=== PATIENT | male | born 1975 | race Hispanic/Latino ===

== ENCOUNTER 2025-05-03 17:13 | Inpatient (IN) | payer BC ==
[~2025-05-03] VITALS: Ht 175.3 cm; Wt 173.5 kg
[2025-05-03 17:48] LABS: IMMATURE GRANULOCYTE ABSOLUTE 0.05 K/uL (0-1); NUCLEATED RED BLOOD CELLS 0.0 % (0.0-0.19); PLATELET COUNT (AUTO) 336 K/uL (130-400); RED BLOOD CELL COUNT(AUTO) 5.09 MIL/uL (4.50-6.20); RED CELL DISTRIBUTION WIDTH 14.1 % (11.0-15.5); WHITE BLOOD COUNT (AUTO) 14.9 K/uL (4.8-10.8)
[2025-05-03 17:56] LABS: CREATININE 0.9 mg/dL (0.5-1.3); GLOMERULAR FILTR. RATE CALC 106.0 mL/min (>90); GLUCOSE,RANDOM 173.0 mg/dL (70-105); SODIUM SERUM 145.0 mmol/L (136-145); UREA NITROGEN, BLOOD 12.0 mg/dL (7-18)
[2025-05-03 18:10] LABS: APPEARANCE,URINE CLEAR (CLEAR); GLUCOSE, URINE (UA) 30 mg/dL (NEGATIVE); LEUKOCYTE ESTERASE ,URINE NEGATIVE Leu/uL (NEGATIVE); NITRATE,URINE NEGATIVE (NEGATIVE); OCCULT BLOOD,URINE NEGATIVE (NEGATIVE)
[2025-05-03 18:11] LABS: ADD UA MICROSCOPIC YES
[2025-05-03 18:13] LABS: SQUAMOUS EPITHELIAL CELL,UR FEW /HPF (0-2)
--- NOTE | 2025-05-03 18:34 | ERN ---
ED Note History of Present Illness Stated Complaint: ABSCESS Chief Complaint: Abscess Time Seen by MD: 17:16 Time Seen by Midlevel: 17:16 Dictation: The patient is a 49-year-old male with a history of prediabetes on metformin, hypertension who presents to the emergency department with complaints of scrotal pain. Patient reports he had a small boil on his scrotum five days ago and then it started draining. Reports fevers yesterday. Allergies: Coded Allergies: No Known Drug Allergies (Unverified Allergy, Unknown, 05/03/25) Past Medical History Past Medical History: Diabetes-Type II, Hypertension Surgical History: None RN Note Reviewed/Agreed w/PFSH: Yes Review of System Dictation Constitutional: Negative for fever,chills, and weight loss Eyes: Negative for injury, pain,redness, and discharge ENT: Negative for injury,pain or swelling Cardiovascular: Negative for chest pain, palpitations, and edema Respiratory: Negative for shortness of breath, cough, and wheezing, Abdomen/GI: Negative for abdominal pain, nausea, vomiting, diarrhea, and constipation Back: Negative for injury and pain : Positive for scrotal pain MS/Extremity: Negative for injury and deformity Skin: Negative for rash, and discoloration Neuro: Negative for headache, weakness, numbness, tingling, and seizure Psych: Negative for suicide ideation, homicidal ideation, and hallucinations Initial Vital Sign VS Vital Signs Date Time Temp Pulse Resp B/P (MAP) Pulse Ox O2 Delivery O2 Flow Rate FiO2 05/03/25 17:17 99.7 105 20 150/82 95 Room Air 0 05/03/25 17:19 21 Physical Exam Dictation Vital Signs reviewed General Appearance: Alert, oriented x 3, no acute distress, well developed, nourished. Head and Face: non-traumatic. Eyes: PERRL, pink conjunctivas, eyelid no trauma, anterior chamber with arcus senilis. Ears: Pinnas intact and no signs of trauma or erythema ear canals clear and no discharge TM no erythema Nose: No discharge, no bleeding. Oropharynx: Mouth normal, tongue pink. pharynx clear,no erythema, tonsils no exudates, no abscesses noted, mucous membrane moist Neck: Supple, non-tender, no thyromegaly, no masses, no JVD, no bruits Breast:Deferred Chest:No tenderness, no crepitus, no paradoxical movement, no retractions Lungs:Clear, well-ventilated, symmetric, no rales, no wheezing, no rhonchi, no stridor, good breath sounds bilaterally Heart: Regular rate, regular rhythm, no murmur, no gallops Vascular: no peripheral edema, Abdomen: Soft, positive bowel sounds, nondistended, no guarding, nontender, no rebound, no masses no hepatomegaly, no splenomegaly, no Knight's sign, no hernias. Rectal: Deferred Genital: Erythema and induration to mid scrotum, open wound noted, clear drainage Neurological: Normal speech, motor function intact, sensory function intact Musculoskeletal: Neck nontender, full range of motion, back nontender, full range of motion, Extremities: nontender, full range of motion Skin: Color pink, dry, no turgor, no rash, no lacerations, no abrasions, no contusions. Lymphatic: Deferred Results (Laboratory/Radiology) Laboratory/Radiology Laboratory Tests Test 05/03/25 17:43 05/03/25 17:58 05/03/25 20:00 White Blood Count 14.9 K/uL (4.8-10.8) H Red Blood Count 5.09 MIL/uL (4.50-6.20) Hemoglobin 15.5 g/dL (14.0-18.0) Hematocrit 47.1 % (42-54) Mean Corpuscular Volume 92.5 fL (79-99) Mean Corpuscular Hemoglobin 30.5 pg (27.0-33.0) Mean Corpuscular Hemoglobin Concent 32.9 g/dL (32.0-36.0) Red Cell Distribution Width 14.1 % (11.0-15.5) Platelet Count 336 K/uL (130-400) Mean Platelet Volume 9.8 fL (7.5-10.5) Immature Granulocyte % (Auto) 0.3 % (0-1) Neutrophils (%) (Auto) 63.8 % (40.0-77.0) Lymphocytes (%) (Auto) 26.7 % (21.0-51.0) Monocytes (%) (Auto) 7.1 % (3.0-13.0) Eosinophils (%) (Auto) 1.7 % (0.0-8.0) Basophils (%) (Auto) 0.4 % (0.0-5.0) Neutrophils # (Auto) 9.5 K/uL (1.8-7.7) H Lymphocytes # (Auto) 4.0 K/uL (1.0-4.8) Monocytes # (Auto) 1.1 K/uL (0.1-1.0) H Eosinophils # (Auto) 0.25 K/uL (0.00-0.70) Basophils # (Auto) 0.06 K/uL (0.00-0.20) Absolute Immature Granulocyte (auto 0.05 K/uL (0-1) Nucleated Red Blood Cells 0.0 % (0.0-0.19) Sodium Level 145 mmol/L (136-145) Potassium Level 4.0 mmol/L (3.5-5.1) Chloride Level 108 mmol/L (101-111) Carbon Dioxide Level 28 mmol/L (21-32) Blood Urea Nitrogen 12 mg/dL (7-18) Creatinine 0.9 mg/dL (0.5-1.3) Glomerular Filtration Rate Calc 106 mL/min (>90) Random Glucose 173 mg/dL (70-105) H Total Calcium 9.0 mg/dL (8.5-10.1) Urine Color LIGHT-YELLOW (YELLOW) Urine Appearance CLEAR (CLEAR) Urine pH 5.0 (5.0-8.0) Urine Specific Jbphh 1.020 (1.001-1.031) Urine Protein NEGATIVE mg/dL (NEGATIVE) Urine Glucose (UA) 30 mg/dL (NEGATIVE) H Urine Ketones NEGATIVE mg/dL (NEGATIVE) Urine Occult Blood NEGATIVE (NEGATIVE) Urine Nitrate NEGATIVE (NEGATIVE) Urine Bilirubin NEGATIVE mg/dL (NEGATIVE) Urine Urobilinogen 0.2 mg/dL (0.2-1.0) Urine Leukocyte Esterase NEGATIVE Celso/uL Urine RBC 0-1 /HPF (0-1) Urine WBC 0-1 /HPF (0-1) Urine Squamous Epithelial Cells FEW /HPF (0-2) Urine Bacteria None /HPF (None Seen) Lactic Acid Level 1.3 mmol/L (0.8-2.5) REASON: pain ORDERING PHYSICIAN: MIRYAM KEENAN PROCEDURE: SCROTUM - US SCROTUM & CONTENTS EXAM: US Scrotum. CLINICAL HISTORY: Patient presents with scrotal pain. TECHNIQUE: Real-time ultrasound of the scrotum with color Doppler and image documentation. COMPARISON: None provided. FINDINGS: RIGHT TESTICLE: The right testicle measures 4.1 x 2.6 x 3.2 cm. It demonstrates hypoechoic echotexture with normal color Doppler flow. LEFT TESTICLE: The left testicle measures 4.2 x 2.6 x 3.0 cm and demonstrates hypoechoic echotexture. Minimal hydrocele is present. Normal color Doppler flow is demonstrated. EPIDIDYMIDES: The right epididymal head measures 8 mm, body 4 mm, and tail 2 mm with normal Doppler flow. The left epididymal head measures 10 mm and body 6 mm. The left epididymal tail is not visualized. Normal color Doppler flow is present in the visualized portions. SCROTUM: The right and left scrotal kline each measure 5 cm. Prominent vessels measuring 3 mm are identified in the right groin. No varicocele or extratesticular mass is seen. IMPRESSION: Bilateral testicular hypoechogenicity of unclear significance with preserved color Doppler flow. Minimal hydrocele in the left hemiscrotum. Prominent vessels in the right groin measuring 3 mm. No evidence of torsion or acute testicular abnormality. /[facility] Labs Reviewed?: Yes ED Course ED Course Orders Procedure Category Date Status Time Cbc With Differential LAB 05/03/25 Complete 17:26 Urinalysis Profile LAB 05/03/25 Complete 17:26 Basic Metabolic Panel LAB 05/03/25 Complete 17:26 Us Scrotum & Contents US 05/03/25 Resulted 17:26 Zosyn 3.375gm+Ns 50ml PHA 05/03/25 Complete (Zosyn 3.375gm+Ns 18:29 Vancomycin 1g/250ml PHA 05/03/25 Complete Kit (Vancomycin 1g/2 18:30 0.9%Nacl 1000ml (Ns PHA 05/03/25 In Process 1000ml) 18:30 Lactic Acid LAB 05/03/25 Complete 18:29 Blood Cult PAUL 05/03/25 In Process 18:29 Diphenhydramine Hcl PHA 05/03/25 Complete (Benadryl Inj) 19:30 Ondansetron 4mg Inj PHA 05/03/25 Complete (Zofran 4mg Inj) 19:30 Ketorolac PHA 05/03/25 Complete Tromethamine 30mg/Ml 19:30 Ketorolac 60mg/2ml PHA 05/03/25 Complete (Toradol 60mg/2ml) 19:33 Admit Orders ADM 05/03/25 Transmitted 20:53 Urology Consult CONPHYSVC 05/03/25 Transmitted 20:53 Current Medications Medications (Trade) Dose Ordered Sig/Ramiro Route PRN Reason Start Time Stop Time Status Last Admin Dose Admin Diphenhydramine HCl (BENAdryl INJ) 25 mg ONCE ONCE IV 05/03/25 19:30 05/03/25 19:31 DC 05/03/25 19:28 Ketorolac Tromethamine (toRADol 60MG/ 2ML) 60 mg STK-MED ONCE IM 05/03/25 19:33 05/03/25 19:33 DC Ketorolac Tromethamine (toRADol) 30 mg ONCE ONCE IVP 05/03/25 19:30 05/03/25 19:31 DC 05/03/25 19:29 Ondansetron HCl (zoFRAN 4MG INJ) 4 mg ONCE ONCE IVP 05/03/25 19:30 05/03/25 19:31 DC 05/03/25 19:28 Piperacillin Sod/ Tazobactam Sod 50 ml @ 200 mls/hr STAT STAT IVPB 05/03/25 18:29 05/03/25 18:43 DC 05/03/25 19:03 Sodium Chloride 2,121 ml @ 707 mls/hr ONCE ONCE IV 05/03/25 18:30 05/03/25 21:29 05/03/25 19:03 Vancomycin HCl 250 ml @ 125 mls/hr ONCE ONCE IV 05/03/25 18:30 05/03/25 20:29 DC 05/03/25 19:46 Vital Signs Date Time Temp Pulse Resp B/P (MAP) Pulse Ox O2 Delivery O2 Flow Rate FiO2 05/03/25 17:19 99.7 105 20 150/82 95 Room Air* 0 21 05/03/25 17:17 99.7 105 20 150/82 95 Room Air 0 Medical Decision Making MDM MDM: The patient is a 49-year-old male with a history of prediabetes on metformin, hypertension who presents to the emergency department with complaints of scrotal pain. Patient reports he had a small boil on his scrotum five days ago and then it started draining. Reports fevers yesterday. CBC showed leukocytosis, no anemia, chemistry showed mild hyperglycemia, no other electrolyte imbalance, normal lactic acid, urinalysis unremarkable, patient will be admitted for further evaluation and management and urology con dileept. Differential diagnosis: Scrotal abscess, cellulitis, sepsis, UTI Comorbidities: Prediabetes, hypertension Tests considered and not ordered secondary to shared decision making include: none Previous outside records reviewed: none Risk of complication and/or morbidity or mortality of patient management: The patient meets criteria for admission. Need for emergency major/minor surgery: No There are no social concerns with this patient. I independently interpreted the tests I ordered (labs, urinalysis, etc.). I discussed the case with the hospitalist for admission. Wilbur BROWN who accepts admission I discussed the case with the following specialists: none. Historian: elizabeth. I independently interpreted imaging studies and EKGs that I ordered (US, CT, XR, EKG, etc.). External chart review: none. Medical management and examination interpretation discussions were had by me wit h other qualified healthcare professionals as indicated for the patient's care. DX & DISP Disposition: Inpatient Decision to Admit Date: May 03, 2025 Decision to Admit Time: 21:00 Departure Impression: Primary Impression: Cellulitis, scrotum Additional Impressions: Leukocytosis, Sepsis Condition: Stable Referrals: SELF,REFERRAL (PCP) I have examined patient, & reviewed all documents, & agreed W/ the Diagnosis, and Plan MIRYAM KEENANP May 03, 2025 18:34
[2025-05-03] MEDS: ZOSYN 3.375GM+NS 50ML 50 ML IVPB STA (19:03)
[2025-05-03] MEDS: 0.9%NACL 1000ML 2,121 ML IV ONE (19:03)
--- NOTE | 2025-05-03 19:29 | NUR ---
AFTER STARTING ZOSYN ADMINISTRATION PT BECAME AGGITATED AND REPORTED SOB AND CLINICAL GENETICIST NOTIFIED POSSIBLE ALLERGIC REACTION MEDICATION STOPPED AND ADDITIONAL MEDS GIVEN TO PREVENT NAUSEA AND POTENTIAL ALLERGIC REACTION PATIENT SYMPTOMS RESOLVED AND MEDICATION CONTINUED
--- NOTE | 2025-05-03 19:41 | NUR ---
PULLED 60 MG KETOROLAC TO FILL 30 MG DOSE THAT WAS UNAVAILABLE AND DISGUARDED REMAINING PORTION
[2025-05-03] MEDS: VANCOMYCIN 1G/250ML KIT 250 ML IV ONE (19:46)
--- NOTE | 2025-05-03 20:15 | HMCIMG ---
EXAM: US Scrotum. CLINICAL HISTORY: Patient presents with scrotal pain. TECHNIQUE: Real-time ultrasound of the scrotum with color Doppler and image documentation. COMPARISON: None provided. FINDINGS: RIGHT TESTICLE: The right testicle measures 4.1 x 2.6 x 3.2 cm. It demonstrates hypoechoic echotexture with normal color Doppler flow. LEFT TESTICLE: The left testicle measures 4.2 x 2.6 x 3.0 cm and demonstrates hypoechoic echotexture. Minimal hydrocele is present. Normal color Doppler flow is demonstrated. EPIDIDYMIDES: The right epididymal head measures 8 mm, body 4 mm, and tail 2 mm with normal Doppler flow. The left epididymal head measures 10 mm and body 6 mm. The left epididymal tail is not visualized. Normal color Doppler flow is present in the visualized portions. SCROTUM: The right and left scrotal kline each measure 5 cm. Prominent vessels measuring 3 mm are identified in the right groin. No varicocele or extratesticular mass is seen. IMPRESSION: Bilateral testicular hypoechogenicity of unclear significance with preserved color Doppler flow. Minimal hydrocele in the left hemiscrotum. Prominent vessels in the right groin measuring 3 mm. No evidence of torsion or acute testicular abnormality. /[place]
--- NOTE | 2025-05-03 20:55 | HP ---
History of Present Illness Reason for Visit: scrotal pain History of Present Illness Mr. Kaur is a 49-year-old male that was seen and examined today on 05/03/2025. Patient is a good historian of personal health Patient reports that he came to the emergency department with a chief complaint of scrotal pain. Onset was April 28. Location is scrotum. Duration is constant. Character is described as soreness. There was no alleviating factors. 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 Patient reports associated scrotal wound that is draining and fever that began yesterday. Today in the emergency department WBCs 14.9, glucose 173, urinalysis unremarkable, testicular ultrasound shows left hemiscrotum hydrocele. Emergency room physician recommended patient be admitted with a diagnosis of sepsis. Additionally patient had a heart rate of 105, WBCs 14.9 and suspected source of infection being scrotal wound meeting clinical sepsis criteria. Past Medical History ADDITIONAL PAST MEDICAL HISTORY: [Diabetes mellitius type2, hypertension] SOCIAL HISTORY: [Patient smokes one pack of cigarettes daily and has been smoking like this since the age of 17. Patient drinks alcohol once a month usually 2-3 whiskey cocktails. Patient denies drug use. Patient is typically independent of all his ADLs. Patient denies difficulty pain is bills. 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 Patient lives with his mother, Javier Lucia SURGICAL HISTORY: [Left shoulder injection, bilateral knee injections] Review of Systems General: No Fever, No Chills, No Night Sweats, No Fatigue, No Malaise, No Appetite, No Other HEENT: No Head Aches, No Visual Changes, No Eye Pain, No Ear Pain, No Dys phasia, No Sinus Congestion, No Post Nasal Drip, No Sore Throat, No Other Pulmonary: No Dyspnea, No Cough, No Pleuritic Chest Pain, No Other Cardiovascular: No: Chest Pain, Palpitations, Orthopnea, Paroxysmal Noc. Dyspnea, Edema, Lt Headedness, Other Gastrointestinal: No: Nausea, Vomiting, Abdominal Pain, Diarrhea, Constipation, Melena, Hematochezia, Other Genitourinary: No Dysuria, No Frequency, No Incontinence, No Hematuria, No Retention; Other (Scrotal pain) Musculoskeletal: No: other, neck pain, shoulder pain, arm pain, back pain, hand pain, leg pain, foot pain Skin: No Urticaria, No Rash; Other (Scrotal wound) Neurological: No: Weakness, Numbness, Incoordination, Change in speech, Confu horacio, Seizures, Other Allergies: Coded Allergies: No Known Drug Allergies (Unverified Allergy, Unknown, 05/03/25) Exam Vital Signs Vital Signs Date Time Temp Pulse Resp B/P (MAP) Pulse Ox O2 Delivery O2 Flow Rate FiO2 05/03/25 17:19 99.7 105 20 150/82 95 Room Air* 0 21 General Appearance: Alert, Oriented X3, Cooperative, mild distress HEENT: Atraumatic, PERRLA, EOMI, Mucous membr. moist/pink Respiratory: Clear to auscultation, Normal air movement, NL respiratory effort Cardiovascular: Regular rate, Regular rhythm, Normal S1, Normal S2 Abdominal: Normal bowel sounds, Soft, No tenderness Extremities: No edema Skin: Other (Scrotal) Neuro: Normal gait, Normal speech, Strength at 5/5 X4 ext, Sensation intact, Cranial nerves 3-12 NL Psych/Mental Status: Mental status NL (nd), Mood NL, Thoughts/Content NL Assessment/Plan ASSESSMENT: [ Sepsis, POA Scrotal wound, POA Left hemiscrotum hydrocele, POA Leukocytosis, POA Tobacco dependence, POA Diabetes mellitius type2 Hypertension] PLAN: [ Admit patient to medical floor as inpatient status. Place patient on telemetry monitoring. Sepsis, leukocytosis: Patient received 0.9% NS 30 mL/kg Empiric antibiotic therapy with Zosyn Check blood culture, follow up with the results Check procalcitonin, follow up with the results Reviewed patient's lactic acid which was unremarkable Reviewed patient's urinalysis which was unremarkable Scrotal wound, left hemiscrotum hydrocele: Patient will be followed by urology service, Dr. Harrell Obtain wound cultures, follow up with the results Empiric antibiotic therapy as mentioned above Tobacco dependence: Consult patient on smoking cessation Start nicotine patch 21 mg transdermally once daily. Diabetes mellitus type 2: Check hemoglobin A1c in a.m. Glucometer checks a.c. and HS 1800 ADA diet Humulin R sliding scale Hypertension: Consider resuming home medications once they have been reconciled. At time of admission home medications did not been reconciled. For now: Hydralazine 10 mg IV every 4 hours for systolic blood pressure greater than 160 mmHg GI prophylaxis, famotidine DVT prophylaxis, Lovenox ADVANCED CARE PLANNING 1. Which of the following were discussed? Hospice Care - Yes Therapeutic options - yes Advance Directives - Yes - patient states he does not have any advance directives in place at this time, however his mother Javier Dugan can make decisions for him if he becomes unable. Other discussions - patient wishes to remain a full code at this time 2. Discussed with who? Patient 3. Voluntary nature of this service was explained to the patient? Yes 4. Amount of time spent - ___16 minutes____ 5. Reviewed by Physician? (if this service was performed by NPP) Yes This document was generated in part using voice recognition software, occasional wrong word or sound alike substitutions may have occurred due to the inherent limitations of voice recognition software. Read the chart carefully and recogni ze using context, where the substitutions have occurred. Although every effort was made to edit the content, coatings inspector and typing errors may occur ATTESTATION BY PHYSICIAN I have seen and examined the patient. I reviewed the documentation, medical de cision making, and treatment plan as noted by the mid-level provider above. I agree with the findings and plan of care.] [facility] May 03, 2025 20:55
[2025-05-03] MEDS ORDERED: 0.9%NACL 50ML IV SCH (21:45)
[2025-05-04] MEDS: NICOTINE 21 MG/ 24 HR PATCH TD ONE (02:12)
[2025-05-04] MEDS: ZOSYN 3.375GM +NS 50ML IVPB SCH (03:07)
[2025-05-04 06:28] LABS: IMMATURE GRANULOCYTE ABSOLUTE 0.06 K/uL (0-1); NUCLEATED RED BLOOD CELLS 0.0 % (0.0-0.19); PLATELET COUNT (AUTO) 307 K/uL (130-400); RED BLOOD CELL COUNT(AUTO) 4.63 MIL/uL (4.50-6.20); RED CELL DISTRIBUTION WIDTH 14.5 % (11.0-15.5); WHITE BLOOD COUNT (AUTO) 12.9 K/uL (4.8-10.8)
[2025-05-04 06:39] LABS: CREATININE 0.9 mg/dL (0.5-1.3); GLOMERULAR FILTR. RATE CALC 106.0 mL/min (>90); GLUCOSE,RANDOM 204.0 mg/dL (70-105); PHOSPHORUS 4.3 mg/dL (2.5-4.9); SODIUM SERUM 140.0 mmol/L (136-145); UREA NITROGEN, BLOOD 13.0 mg/dL (7-18)
--- NOTE | 2025-05-04 07:00 | NUR ---
Refused blood glucose check. Stated he needed to rest.
--- NOTE | 2025-05-04 07:05 | NUR ---
Assumed patients care.
--- NOTE | 2025-05-04 08:00 | NUR ---
Patient was placed in a hospital bed. Bed low and locked, bed rails up x3.
--- NOTE | 2025-05-04 09:00 | NUR ---
Educated patient on plan of care, sceduled medications, current diet and pain managment. Patient verbalized understanding.
[2025-05-04] MEDS: FAMOTIDINE 20MG TAB PO SCH (09:27)
[2025-05-04] MEDS: ENOXAPARIN SODIUM 40 MG/0.4 ML SYRINGE SQ SCH (09:27)
--- NOTE | 2025-05-04 12:10 | PN ---
[facility] PROGRESS NOTE Date of Service: May 04, 2025 Time of Service: 12:00 SUBJECTIVE: [ ] Mr. Kaur is a 49-year-old male that was seen and examined today on 05/03/2025. Patient is a good historian of personal health Patient reports that he came to the emergency department with a chief complaint of scrotal pain. Onset was April 28. Location is scrotum. Duration is constant. Character is described as soreness. There was no alleviating factors. 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 Patient reports associated scrotal wound that is draining and fever that began yesterday. Today in the emergency department WBCs 14.9, glucose 173, urinalysis unremarkable, testicular ultrasound shows left hemiscrotum hydrocele. Emergency room physician recommended patient be admitted with a diagnosis of sepsis. Additionally patient had a heart rate of 105, WBCs 14.9 and suspected source of infection being scrotal wound meeting clinical sepsis criteria. 05/04/25 patient is sitting on the edge of the bed he remains in ER setting holding. Patient denies scrotal pain. Tolerating IV antibiotics. Discussed the plan of care answer all questions appropriately. REVIEW OF SYSTEMS a 12 point ROS obtained all relevant positive document otherwise ROS negative PHYSICAL EXAM GENERAL APPEARANCE: The patient is awake, alert, and oriented, in no acute cardiopulmonary distress. NEUROLOGICAL: Cranial nerves II-XII grossly intact. Motor is 5/5 in bilateral upper and lower extremities proximal to distal. No sensory deficits. HEENT: Face is symmetric. Pupils are equal and reactive. Extraocular movements are intact. NECK: Supple. No JVD. No thyromegaly. No submental, submandibular, pre-/postauricular, occipital or supraclavicular lymphadenopathy. CHEST: Normal chest expansion. No Telemetry. LUNGS: Absence of any rales, rhonchi or any wheezing. CARDIOVASCULAR: Regular. S1 and S2 normal. No appreciable rubs, murmurs or gallops. ABDOMEN: Soft, nontender, and nondistended. There is no rebound, voluntary guarding, or rigidity. : Deferred. No Fung. EXTREMITIES: Non-edematous and not cyanotic. No clubbing. Good capillary refill. SKIN: No skin breakdown. Vital Signs (last 8hr) Date Time Temp Pulse Resp B/P (MAP) Pulse Ox O2 Delivery O2 Flow Rate FiO2 05/04/25 07:05 98.2 84 16 119/64 93 Room Air* 0 21 05/04/25 05:50 98.6 85 17 113/85 96 Room Air* 0 21 LABS: Laboratory: Test 05/04/25 11:17 05/04/25 06:15 05/03/25 20:00 05/03/25 17:58 Range/Units Whole Blood Glucose 242 H 70-110 MG/DL White Blood Count 12.9 H 4.8-10.8 K/uL Red Blood Count 4.63 4.50-6.20 MIL/uL Hemoglobin 14.3 14.0-18.0 g/dL Hematocrit 44.1 42-54 % Mean Corpuscular Volume 95.2 79-99 fL Mean Corpuscular Hemoglobin 30.9 27.0-33.0 pg Mean Corpuscular Hemoglobin Concent 32.4 32.0-36.0 g/dL Red Cell Distribution Width 14.5 11.0-15.5 % Platelet Count 307 130-400 K/uL Mean Platelet Volume 10.0 7.5-10.5 fL Immature Granulocyte % (Auto) 0.5 0-1 % Neutrophils (%) (Auto) 60.4 40.0-77.0 % Lymphocytes (%) (Auto) 26.8 21.0-51.0 % Monocytes (%) (Auto) 8.8 3.0-13.0 % Eosinophils (%) (Auto) 3.0 0.0-8.0 % Basophils (%) (Auto) 0.5 0.0-5.0 % Neutrophils # (Auto) 7.8 H 1.8-7.7 K/uL Lymphocytes # (Auto) 3.5 1.0-4.8 K/uL Monocytes # (Auto) 1.1 H 0.1-1.0 K/uL Eosinophils # (Auto) 0.38 0.00-0.70 K/uL Basophils # (Auto) 0.06 0.00-0.20 K/uL Absolute Immature Granulocyte (auto 0.06 0-1 K/uL Nucleated Red Blood Cells 0.0 0.0-0.19 % Sodium Level 140 136-145 mmol/L Potassium Level 3.9 3.5-5.1 mmol/L Chloride Level 106 101-111 mmol/L Carbon Dioxide Level 32 21-32 mmol/L Blood Urea Nitrogen 13 7-18 mg/dL Creatinine 0.9 0.5-1.3 mg/dL Glomerular Filtration Rate Calc 106 >90 mL/min Random Glucose 204 H 70-105 mg/dL Hemoglobin A1c 8.3 H 4.0-6.0 % Estimated Average Glucose (eAG) 192 H 70-126 mg/dL Total Calcium 8.4 L 8.5-10.1 mg/dL Phosphorus Level 4.3 2.5-4.9 mg/dL Magnesium Level 2.00 1.80-2.40 mg/dL Lactic Acid Level 1.3 0.8-2.5 mmol/L Procalcitonin < 0.05 L 0.05-0.5 ng/mL Urine Color LIGHT-YELLOW YELLOW Urine Appearance CLEAR CLEAR Urine pH 5.0 5.0-8.0 Urine Specific [employer] 1.020 1.001-1.031 Urine Protein NEGATIVE NEGATIVE mg/dL Urine Glucose (UA) 30 H NEGATIVE mg/dL Urine Ketones NEGATIVE NEGATIVE mg/dL Urine Occult Blood NEGATIVE NEGATIVE Urine Nitrate NEGATIVE NEGATIVE Urine Bilirubin NEGATIVE NEGATIVE mg/dL Urine Urobilinogen 0.2 0.2-1.0 mg/dL Urine Leukocyte Esterase NEGATIVE NEGATIVE Celso/uL Urine RBC 0-1 0-1 /HPF Urine WBC 0-1 0-1 /HPF Urine Squamous Epithelial Cells FEW 0-2 /HPF Urine Bacteria None None Seen /HPF Current Medications Medications (Trade) Dose Ordered Sig/Ramiro Route PRN Reason Start Time Stop Time Status Last Admin Dose Admin Acetaminophen (TYLenol 325MG TAB) 650 mg Q6H PRN PO TEMPERATURE GREATER THAN 101.5 05/03/25 22:00 06/02/25 21:59 Enoxaparin Sodium (Lovenox) 40 mg DAILY SQ 05/04/25 09:00 06/03/25 08:59 05/04/25 09:27 40 MG Famotidine (Pepcid 20mg Tab) 20 mg DAILY PO 05/04/25 09:00 06/03/25 08:59 05/04/25 09:27 20 MG Hydralazine HCl (APRESOLine 20MG INJ) 10 mg Q6H PRN IV For:SBP above 160;DBP above 90 05/03/25 22:00 06/02/25 21:59 Insulin Human Regular (humuLIN R 100 UNIT/ML 3ML) INSULIN SLIDING SCAL... ACHS SQ 05/04/25 07:30 06/03/25 07:29 Morphine Sulfate (morPHINE 2MG SYG) 2 mg Q4H PRN IVP SEVERE PAIN (7-10) 05/03/25 22:00 05/10/25 21:59 Nicotine (Nicoderm) 21 mg DAILY TD 05/05/25 09:00 06/04/25 08:59 Ondansetron HCl (zoFRAN 4MG INJ) 4 mg Q6H PRN IV NAUSEA/VOMITING 05/03/25 22:00 06/02/25 21:59 05/04/25 09:27 4 MG Piperacillin Sod/ Tazobactam Sod 50 ml @ 200 mls/hr STAT STAT IVPB 05/03/25 18:29 05/03/25 18:43 DC 05/03/25 19:03 200 MLS/HR Piperacillin Sod/ Tazobactam Sod (Zosyn 3.375gm+NS 50ml) 3.375 gm Q8H IVPB 05/04/25 03:00 05/14/25 02:59 05/04/25 03:07 3.375 GM Sodium Chloride (NS 50ml) 50 ml AD IV 05/03/25 21:45 06/02/25 21:44 DIAGNOSTICS / RADIOLOGY: [ ] ASSESSMENT: Sepsis, POA Scrotal wound, POA Left hemiscrotum hydrocele, POA Leukocytosis, POA Tobacco dependence, POA Diabetes mellitius type2 Hypertension PLAN: [ ] Admit:surgical medical with Tele: condition:guarded Status: IVF: [facility] urologist Antibiotics: Zosyn 3 375gm IV q8 hrs. Microbiology: blood culture in process and wound cultures in process Imaging: US Scrotum: noted Labs cbc, cmp, mag+ ac/hs monitoring with SSRI coverage Replace electrolytes as needed as per protocol to keep potassium above 4.0 magnesium 2.0. smoking cessation Pain management: Morphine 2 mg IV as needed Supportive measures: DVT ppx, GI ppx all questions answered Supervising MD: Dr. Dorothy Rojo c/d This document was generated in part using voice recognition software, occasional wrong word or sound alike substitutions may have occurred due to the inherent limitations of voice recognition software. Read the chart carefully and recognize using context, where the substitutions have occurred. Although every effort was made to edit the content, ex chef and typing errors may occur ATTESTATION BY PHYSICIAN I have seen and examined the patient. I reviewed the documentation, medical decision making, and treatment plan as noted by the mid-level provider above. I agree with the findings and plan of care. Stacy De La Cruz MD, [facility] NP May 04, 2025 12:09
[2025-05-04 22:00] VITALS: BP 123/73; PULSE 76; RESP 22; TEMP 98.2
[2025-05-05 03:17] VITALS: BP 84/54; PULSE 76; RESP 22; TEMP 97.9
[2025-05-05 07:49] VITALS: BP 124/94; PULSE 80; RESP 17; TEMP 97.6
[2025-05-05 08:00] VITALS: O2SAT 98
[2025-05-05] MEDS: NICOTINE 21 MG/ 24 HR PATCH TD SCH (08:21)
--- NOTE | 2025-05-05 09:22 | PN ---
[facility] PROGRESS NOTE Date of Service: May 05, 2025 Time of Service: 09:18 SUBJECTIVE: [ ] Mr. Kaur is a 49-year-old male that was seen and examined today on 05/03/2025. Patient is a good historian of personal health Patient reports that he came to the emergency department with a chief complaint of scrotal pain. Onset was April 28. Location is scrotum. Duration is constant. Character is described as soreness. There was no alleviating factors. 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 Patient reports associated scrotal wound that is draining and fever that began yesterday. Today in the emergency department WBCs 14.9, glucose 173, urinalysis unremarkable, testicular ultrasound shows left hemiscrotum hydrocele. Emergency room physician recommended patient be admitted with a diagnosis of sepsis. Additionally patient had a heart rate of 105, WBCs 14.9 and suspected source of infection being scrotal wound meeting clinical sepsis criteria. 05/04/25 patient is sitting on the edge of the bed he remains in ER setting holding. Patient denies scrotal pain. Tolerating IV antibiotics. Discussed the plan of care answer all questions appropriately. 05/05/25 patient is seen and examined patient reports tolerating antibiotics no drainage reported we will continue to follow cultures urology pending. REVIEW OF SYSTEMS a 12 point ROS obtained all relevant positive document otherwise ROS negative PHYSICAL EXAM GENERAL APPEARANCE: The patient is awake, alert, and oriented, in no acute cardiopulmonary distress. NEUROLOGICAL: Cranial nerves II-XII grossly intact. Motor is 5/5 in bilateral upper and lower extremities proximal to distal. No sensory deficits. HEENT: Face is symmetric. Pupils are equal and reactive. Extraocular movements are intact. NECK: Supple. No JVD. No thyromegaly. No submental, submandibular, pre- /postauricular, occipital or supraclavicular lymphadenopathy. CHEST: Normal chest expansion. No Telemetry. LUNGS: Absence of any rales, rhonchi or any wheezing. CARDIOVASCULAR: Regular. S1 and S2 normal. No appreciable rubs, murmurs or gallops. ABDOMEN: Soft, nontender, and nondistended. There is no rebound, voluntary guarding, or rigidity. : Deferred. No Fung. EXTREMITIES: Non-edematous and not cyanotic. No clubbing. Good capillary refill. SKIN: No skin breakdown. Vital Signs (last 8hr) Date Time Temp Pulse Resp B/P (MAP) Pulse Ox O2 Delivery O2 Flow Rate FiO2 05/05/25 07:49 97.5 80 17 124/94 90 Room Air 05/05/25 03:17 97.9 76 22 84/54 96 Room Air LABS: Laboratory: Test 05/05/25 05:09 05/04/25 06:15 05/03/25 20:00 05/03/25 17:58 Range/Units Whole Blood Glucose 158 H 70-110 MG/DL White Blood Count 12.9 H 4.8-10.8 K/uL Red Blood Count 4.63 4.50-6.20 MIL/uL Hemoglobin 14.3 14.0-18.0 g/dL Hematocrit 44.1 42-54 % Mean Corpuscular Volume 95.2 79-99 fL Mean Corpuscular Hemoglobin 30.9 27.0-33.0 pg Mean Corpuscular Hemoglobin Concent 32.4 32.0-36.0 g/dL Red Cell Distribution Width 14.5 11.0-15.5 % Platelet Count 307 130-400 K/uL Mean Platelet Volume 10.0 7.5-10.5 fL Immature Granulocyte % (Auto) 0.5 0-1 % Neutrophils (%) (Auto) 60.4 40.0-77.0 % Lymphocytes (%) (Auto) 26.8 21.0-51.0 % Monocytes (%) (Auto) 8.8 3.0-13.0 % Eosinophils (%) (Auto) 3.0 0.0-8.0 % Basophils (%) (Auto) 0.5 0.0-5.0 % Neutrophils # (Auto) 7.8 H 1.8-7.7 K/uL Lymphocytes # (Auto) 3.5 1.0-4.8 K/uL Monocytes # (Auto) 1.1 H 0.1-1.0 K/uL Eosinophils # (Auto) 0.38 0.00-0.70 K/uL Basophils # (Auto) 0.06 0.00-0.20 K/uL Absolute Immature Granulocyte (auto 0.06 0-1 K/uL Nucleated Red Blood Cells 0.0 0.0-0.19 % Sodium Level 140 136-145 mmol/L Potassium Level 3.9 3.5-5.1 mmol/L Chloride Level 106 101-111 mmol/L Carbon Dioxide Level 32 21-32 mmol/L Blood Urea Nitrogen 13 7-18 mg/dL Creatinine 0.9 0.5-1.3 mg/dL Glomerular Filtration Rate Calc 106 >90 mL/min Random Glucose 204 H 70-105 mg/dL Hemoglobin A1c 8.3 H 4.0-6.0 % Estimated Average Glucose (eAG) 192 H 70-126 mg/dL Total Calcium 8.4 L 8.5-10.1 mg/dL Phosphorus Level 4.3 2.5-4.9 mg/dL Magnesium Level 2.00 1.80-2.40 mg/dL Lactic Acid Level 1.3 0.8-2.5 mmol/L Procalcitonin < 0.05 L 0.05-0.5 ng/mL Urine Color LIGHT-YELLOW YELLOW Urine Appearance CLEAR CLEAR Urine pH 5.0 5.0-8.0 Urine Specific [place] 1.020 1.001-1.031 Urine Protein NEGATIVE NEGATIVE mg/dL Urine Glucose (UA) 30 H NEGATIVE mg/dL Urine Ketones NEGATIVE NEGATIVE mg/dL Urine Occult Blood NEGATIVE NEGATIVE Urine Nitrate NEGATIVE NEGATIVE Urine Bilirubin NEGATIVE NEGATIVE mg/dL Urine Urobilinogen 0.2 0.2-1.0 mg/dL Urine Leukocyte Esterase NEGATIVE NEGATIVE Celso/uL Urine RBC 0-1 0-1 /HPF Urine WBC 0-1 0-1 /HPF Urine Squamous Epithelial Cells FEW 0-2 /HPF Urine Bacteria None None Seen /HPF Current Medications Medications (Trade) Dose Ordered Sig/Ramiro Route PRN Reason Start Time Stop Time Status Last Admin Dose Admin Acetaminophen (TYLenol 325MG TAB) 650 mg Q6H PRN PO TEMPERATURE GREATER THAN 101.5 05/03/25 22:00 06/02/25 21:59 05/04/25 20:38 650 MG Enoxaparin Sodium (Lovenox) 40 mg DAILY SQ 05/04/25 09:00 06/03/25 08:59 05/05/25 08:21 40 MG Famotidine (Pepcid 20mg Tab) 20 mg DAILY PO 05/04/25 09:00 06/03/25 08:59 05/05/25 08:21 20 MG Hydralazine HCl (APRESOLine 20MG INJ) 10 mg Q6H PRN IV For:SBP above 160;DBP above 90 8/2/25 22:00 06/02/25 21:59 Insulin Human Regular (humuLIN R 100 UNIT/ML 3ML) INSULIN SLIDING SCAL... ACHS SQ 05/04/25 07:30 06/03/25 07:29 05/04/25 12:20 6 UNIT Morphine Sulfate (morPHINE 2MG SYG) 2 mg Q4H PRN IVP SEVERE PAIN (7-10) 05/03/25 22:00 05/10/25 21:59 05/05/25 08:21 2 MG Nicotine (Nicoderm) 21 mg DAILY TD 05/05/25 09:00 06/04/25 08:59 05/05/25 08:21 21 MG Ondansetron HCl (zoFRAN 4MG INJ) 4 mg Q6H PRN IV NAUSEA/VOMITING 05/03/25 22:00 06/02/25 21:59 05/04/25 09:27 4 MG Piperacillin Sod/ Tazobactam Sod 50 ml @ 200 mls/hr STAT STAT IVPB 05/03/25 18:29 05/03/25 18:43 DC 05/03/25 19:03 200 MLS/HR Piperacillin Sod/ Tazobactam Sod (Zosyn 3.375gm+NS 50ml) 3.375 gm Q8H IVPB 05/04/25 03:00 05/14/25 02:59 05/05/25 03:41 3.375 GM Sodium Chloride (NS 50ml) 50 ml AD IV 05/03/25 21:45 06/02/25 21:44 DIAGNOSTICS / RADIOLOGY: [ ] ASSESSMENT: Sepsis, POA Scrotal wound, POA Left hemiscrotum hydrocele, POA Leukocytosis, POA Tobacco dependence, POA Diabetes mellitius type2 Hypertension PLAN: [ ] Admit:surgical medical with Tele: condition:guarded Status: IVF: [facility] urologist pending Antibiotics: Zosyn 3 375gm IV q8 hrs. Microbiology: blood culture negative so far and wound cultures pending Labs cbc, cmp, mag+ ac/hs monitoring with SSRI coverage Replace electrolytes as needed as per protocol to keep potassium above 4.0 magnesium 2.0. smoking cessation nicotine patch daily Pain management: Morphine 2 mg IV as needed Supportive measures: DVT ppx, GI ppx all questions answered Supervising MD: Dr. Dorothy Rojo c/d This document was generated in part using voice recognition software, occasional wrong word or sound alike substitutions may have occurred due to the inherent limitations of voice recognition software. Read the chart carefully and recognize using context, where the substitutions have occurred. Although every effort was made to edit the content, press feeder broomcorn and typing errors may occur ATTESTATION BY PHYSICIAN I have seen and examined the patient. I reviewed the documentation, medical decision making, and treatment plan as noted by the mid-level provider above. I agree with the findings and plan of care. Stacy De La Cruz MD, [facility] NP May 05, 2025 09:22
[2025-05-05 11:29] VITALS: BP 125/74; PULSE 64; RESP 17; TEMP 97.8
--- NOTE | 2025-05-05 14:35 | NUR ---
DCP: HOME Pt currently lives with sps and mom. Pt does not report any insecurities with food, fdc, and/or utilities. Pt does not have DME, home health, or provider services. 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 PCP is Dr. Jesus Barajas and uses [facility] for any RX needs. At [place] pt will want to go home and family can assist with transportation. Addendum: 05/05/25 at 1437 by JED CHISHOLM SS Amended: Links added.
[2025-05-05 15:45] VITALS: BP 126/79; PULSE 67; RESP 18; TEMP 97.7
[2025-05-05 20:00] VITALS: BP 101/80; PULSE 74; RESP 21; TEMP 98.6; O2SAT 96
[2025-05-05] MEDS ORDERED: IOHEXOL 350 MG/ML 100ML INFUS..BTL IV ONE (20:13)
[2025-05-06] VITALS (7 sets, daily range): BP systolic 118–154; BP diastolic 58–95; PULSE 63–78; RESP 17–21; TEMP 97.6–98.3; O2SAT 94–95
--- NOTE | 2025-05-06 00:43 | CONS ---
REQUESTING PHYSICIAN: Dr. Moore. REASON FOR CONSULTATION: Scrotal wound. HISTORY OF PRESENT ILLNESS: Dear Dr. Moore, I had the pleasure of seeing your patient in consultation for evaluation of scrotal wound. 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 Noted to have a small scrotal boil measuring about 1 cm in the raphe of his scrotum and also in the left groin that is draining spontaneously. The patient was admitted to the hospital. Consultation was requested. The patient encountered lying in bed comfortably. He has some spontaneous seropurulent drainage from the left groin, which is somewhat bloody as well, and he has a small boil in that location. The patient reports having had multiple boils in the past in his lower abdomen, both groins, which have resolved spontaneously after spontaneous drainage. He was admitted to the hospital because of a diagnosis of sepsis with a white count of 14,000. The patient's scrotal ultrasound apparently revealed normal flow to both testicles with minimal to no hydrocele on either side. The patient is encountered lying in bed comfortably, offering no complaints. ALLERGIES: None. MEDICATIONS: Include IV Zosyn at this time as well as insulin Humulin and p.r.n. pain medication. PAST MEDICAL HISTORY: Significant for diabetes, morbid obesity. PAST SURGICAL HISTORY: Bilateral knee injections. FAMILY HISTORY: Negative for kidney stones. 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 Occasionally smokes and occasionally drinks. REVIEW OF SYSTEMS: He has no shortness of breath or chest pain. His appetite is good. He has no nausea, no vomiting. No constipation or diarrhea. No headaches, dizziness or nosebleed. No joint pain, joint swelling, limitation of movement, night sweats, fever, chills or skin rash. PHYSICAL EXAMINATION: GENERAL: Morbidly obese male in no distress whatsoever. VITAL SIGNS: Temperature is 98, blood pressure is 140/80 with a pulse of 82. NECK: No adenopathy or supraclavicular masses palpable. LUNGS: Lung serna are clear to auscultation. HEART: Heart sounds are best heard in the fifth intercostal space. ABDOMEN: Morbidly obese. There is a small boil in the groin on the left side measuring about 1 cm. EXTERNAL GENITALIA: Phallus not circumcised. Foreskin retracts with some difficulty. Testicles are descended bilaterally. Scrotal wall is not thickened. There is a 1 cm small indurated boil also in the midline raphe. There is no fluctuation in the perineum or in the wall of the scrotum. RECTAL: Patent anus. LABORATORY DATA: Reviewed in detail. White count is 12, hematocrit is 44, platelet count is 307. The patient's sodium is 140, potassium 3.9, BUN and creatinine now 13/0.9. Urinalysis is pending. IMAGING STUDIES: Reviewed today include an ultrasound of his scrotum that shows normal testicles bilaterally and no hydrocele. ASSESSMENT: Cutaneous boil, one in the groin on the left side, 1 cm, one in the median raphe, not draining, also 1 cm. RECOMMENDATIONS: * Continue with culture-specific antibiotics, specifically for gram-positive coverage. * PRN pain medication. * Improved diabetes control as his sugars are running around 200. * The patient's concerns and questions were answered. I will be ordering a CT scan of his abdomen and pelvis with and without IV contrast to assure that there is no additional pathology in the anterior abdominal wall. Creatinine is 0.9. Concerns and questions were answered. Thank you for the opportunity for providing consultation on your patient. TID: [id number] RECEIPT: [id number]
[2025-05-06 05:02] LABS: IMMATURE GRANULOCYTE ABSOLUTE 0.07 K/uL (0-1); NUCLEATED RED BLOOD CELLS 0.0 % (0.0-0.19); PLATELET COUNT (AUTO) 274 K/uL (130-400); RED BLOOD CELL COUNT(AUTO) 4.59 MIL/uL (4.50-6.20); RED CELL DISTRIBUTION WIDTH 13.8 % (11.0-15.5); WHITE BLOOD COUNT (AUTO) 12.4 K/uL (4.8-10.8)
[2025-05-06 05:18] LABS: ASPARTATE AMINOTRANSFERASE 16.0 U/L (10-37); CREATININE 0.7 mg/dL (0.5-1.3); GLOMERULAR FILTR. RATE CALC 114.0 mL/min (>90); GLUCOSE,RANDOM 111.0 mg/dL (70-105); SODIUM SERUM 141.0 mmol/L (136-145); TOTAL PROTEIN, SERUM 6.2 g/dL (6.0-8.3); UREA NITROGEN, BLOOD 8.0 mg/dL (7-18)
[2025-05-06] MEDS: PoTASSium chloRIDE 20MEQ ER 20 MEQ ERTAB PO PRN (05:50)
[2025-05-06] MEDS ORDERED: PoTASSium chl 10% ELIXIR 20MEQ 20 MEQ/15 ML UDCUP PO PRN (06:00)
[2025-05-06] MEDS: MAGNESIUM 2GM PREMIX 50ML 50 ML IV PRN (07:49)
--- NOTE | 2025-05-06 12:43 | DS ---
Discharge Summary Hospital Course Summary: Mr. Edgar is a 49-year-old male that was seen and examined today on 05/03/2025. Patient is a good historian of personal health Patient reports that he came to the emergency department with a chief complaint of scrotal pain. Onset was April 28. Location is scrotum. Duration is constant. Character is described as soreness. There was no alleviating factors. 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 Patient re ports associated scrotal wound that is draining and fever that began yesterday. Today in the emergency department WBCs 14.9, glucose 173, urinalysis unremarkable, testicular ultrasound shows left hemiscrotum hydrocele. Emergency room physician recommended patient be admitted with a diagnosis of sepsis. Additionally patient had a heart rate of 105, WBCs 14.9 and suspected source of infection being scrotal wound meeting clinical sepsis criteria. 05/04/25 patient is sitting on the edge of the bed he remains in ER setting holding. Patient denies scrotal pain. Tolerating IV antibiotics. Discussed the plan of care answer all questions appropriately. 05/05/25 patient is seen and examined patient reports tolerating antibiotics no drainage reported we will continue to follow cultures urology pending. 05/06/2025 patient is hemodynamically stable for discharge. No fevers no chills was seen by Urology no surgical intervention. Recommendations to continue with oral antibiotics. Upon discharge. Urine cultures MRSA sensitivity to Levaquin we will be discharged on 500 mg p.o. daily for seven days advised patient the importance to keep blood sugars below 200 A1c was 8.3 Goal is to bring it down to 5.6 modify modify risk factors diet and exercise. 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 DR: JOHN TAY[facility] SOURCE: OTHER SOUR ENTR: 05/04/25-[address] [facility] [address]: MARKELL HILL MD SPDESC: OTHER BLU FISCHER MD, CARLOS A. MD ORDERED: AEROBIC CULTURE COMMENTS: Specimen Comment: scrotum Procedure Result Bailey Date-Time AEROBIC CULTURE Preliminary 05/06/25-613 MRL COLONY DESCRIPTION: REPORT 1: 1+ SKIN KEIRY ; STUDIES TO CONTINUE COAGULASE NEGATIVE STAPHYLOCOCCUS 1+ GRAM POSITIVE COCCI IN CLUSTERS STAPHYLOCOCCUS AUREUS SENSITIVITY TO FOLLOW REPORT 2: STUDIES TO CONTINUE STAPHYLOCOCCUS AUREUS S. AUREUS M.I.C. RX --------- ---- ERYTHROMYCIN <=0.5 S GENTAMICIN <=4 S LEVOFLOXACIN <=1 S VANCOMYCIN 1 S OXACILLIN PAUL 1 S RIFAMPIN <=1 S PENICILLIN >8 Willam TRIMETHOPRIM/SUFLAMETHOXAZOLE <=0.5/9.5 S RUN DATE: 05/05/25 [facility] PAGE 1 RUN TIME: [id number] [id number] Department of [employer] [facility] # [id number] Intake Coordinator: Zonia Casiano DO Specimen Report --- --------- PATIENT: SHAHZAD EDGAR ACCT: [id number] LOC: [facility] U: [id number] AGE/SX: 49/M ROOM: 309 RE05/03/[address]: BLU FISCHER MD : 1975 BED: 1 DIS: STATUS: ADM IN TLOC: SPEC: [id number] CE: 05/03/25 STATUS: RES REQ: [id number] RECD: 05/03/25-[address]: MIRYAM KEENAN [facility] SOURCE: BLOOD ENTR: 05/03/25-[address]: YOHANA SPDESC: SELF,REFERRAL ORDERED: BLOOD CULTURE COMMENTS: What is the Source? BLOOD Procedure Result Bailey Date-Time BLOOD CULT Preliminary 05/05/25-1854 NO GROWTH AFTER 48 HOURS RUN DATE: 05/05/25 [facility] PAGE 1 RUN TIME: [address] [address], [place] [address] Department of Laboratories [facility] # [id number] Intake Coordinator: Zonia Casiano DO Specimen Report PATIENT: SHAHZAD EDGAR ACCT: [id number] LOC: [facility] U: [id number] AGE/SX: 49/M ROOM: 309 RE05/03/[address]: BLU FISCHER MD : 1975 BED: 1 DIS: STATUS: ADM IN TLOC: SPEC: [id number] CE: 05/03/25 STATUS: RES REQ: [id number] RECD: 05/03/[address]: MIRYAM KEENANP SOURCE: BLOOD ENTR: 05/03/[address]: YOHANA SPDESC: SELF,REFERRAL ORDERED: BLOOD CULTURE COMMENTS: What is the Source? BLOOD Procedure Result Bailey Date-Time BLOOD CULT Preliminary 05/05/25-1855 NO GROWTH AFTER 48 HOURS Item Value Date Time White Blood Count 12.4 K/uL H 05/06/25 0421 Red Blood Count 4.59 MIL/uL 05/06/25 0421 Hemoglobin 14.1 g/dL 05/06/25420 Hematocrit 42.2 % 05/06/25420 Mean Corpuscular Volume 91.9 fL 05/06/25420 Mean Corpuscular Hemoglobin 30.7 pg 05/06/25420 Mean Corpuscular Hemoglobin Concent 33.4 g/dL 05/06/25420 Red Cell Distribution Width 13.8 % 05/06/25420 Platelet Count 274 K/uL 05/06/25 042 Mean Platelet Volume 10.0 fL 05/06/25 042 Immature Granulocyte % (Auto) 0.6 % 05/06/25420 Neutrophils (%) (Auto) 65.6 % 05/06/25420 Lymphocytes (%) (Auto) 24.3 % 05/06/25420 Monocytes (%) (Auto) 6.1 % 05/06/25420 Eosinophils (%) (Auto) 3.0 % 05/06/25420 Basophils (%) (Auto) 0.4 % 05/06/25420 Neutrophils # (Auto) 8.1 K/uL H 05/06/25 0421 Lymphocytes # (Auto) 3.0 K/uL 05/06/25 0421 Monocytes # (Auto) 0.8 K/uL 05/06/25 0421 Eosinophils # (Auto) 0.37 K/uL 05/06/25 0421 Basophils # (Auto) 0.05 K/uL 05/06/25 0421 Absolute Immature Granulocyte (auto 0.07 K/uL 05/06/25 042 Nucleated Red Blood Cells 0.0 % 05/06/25 0421 Urine Leukocyte Esterase NEGATIVE [place]/uL 05/03/25 1758 Urine RBC 0-1 /HPF 05/03/25 1758 Urine WBC 0-1 /HPF 05/03/25 1758 Urine Squamous Epithelial Cells FEW /HPF 05/03/25 1758 Urine Bacteria None /HPF 05/03/25 1758 Urine Urobilinogen 0.2 mg/dL 05/03/25 1758 Urine Bilirubin NEGATIVE mg/dL 05/03/25 1758 Urine Nitrate NEGATIVE 05/03/25 1758 Urine Occult Blood NEGATIVE 05/03/25 1758 Urine Ketones NEGATIVE mg/dL 05/03/25 1758 Urine Glucose (UA) 30 mg/dL H 05/03/25 1758 Urine Specific [place] 1.020 05/03/25 175 Urine Appearance CLEAR 05/03/25 1758 Urine pH 5.0 05/03/25 175 Urine Color LIGHT-YELLOW 05/03/25 1758 Urine Protein NEGATIVE mg/dL 05/03/25 1758 Potassium Level 3.4 mmol/L L 05/06/25 0421 Chloride Level 103 mmol/L 05/06/25 0421 Carbon Dioxide Level 32 mmol/L 05/06/25 0421 Sodium Level 141 mmol/L 05/06/25 0421 Blood Urea Nitrogen 8 mg/dL 05/06/25 0421 Creatinine 0.7 mg/dL 05/06/25 0421 Glomerular Filtration Rate Calc 114 mL/min 05/06/25 0421 Whole Blood Glucose 210 MG/DL H # 05/06/25 1027 Whole Blood Glucose 124 MG/DL H 05/06/25 0521 Random Glucose 111 mg/dL H 05/06/25 0421 Total Calcium 8.6 mg/dL 05/06/25 0421 Magnesium Level 1.70 mg/dL L 05/06/25 0421 Total Bilirubin 0.6 mg/dL 05/06/25 0421 Aspartate Amino Transf (AST/SGOT) 16 U/L 05/06/25 0421 Alanine Aminotransferase (ALT/SGPT) 37 U/L 05/06/25 0421 Alkaline Phosphatase 81 U/L 05/06/25 0421 Total Protein 6.2 g/dL 05/06/25 0421 Albumin 3.0 g/dL L 05/06/25 0421 Assessment/Plan: Discharged Dx's: Sepsis, POA Scrotal wound, POA we will be discharged on oral antibiotics Left hemiscrotum hydrocele, POA no intervention Leukocytosis, POA improving Tobacco dependence, POA discussed on smoking cessation Diabetes mellitius type2 advised on lifestyle changes modified diet and exercise Hypertension Electrolytes derangement magnesemia hypokalemia corrected PLAN: [ ] ADMISSION DATE: 05/03/2025 DISCHARGE DATE: 05/06/2025 DISPOSITION: Home CONDITION: Stable RN CASE MGR(S): None FOLLOW UP APPOINTMENT(S): PCP Dr. Jenn Lee 2-3 days PROCEDURES: None IMAGING (S) report attached to summary : CT abdomen pelvis MICROBIOLOGY: report attached to summary; blood cultures urine cultures ACTIVITY: [employer] [facility] HOME MEDICATIONS none profile CHANGES ON HOME MEDICATIONS NEW MEDICATIONS Levaquin 500 mg p.o. daily for seven days Weight management was discussed with patient's modified diet and exercise lifestyle changes. TEACHING: Advised patient to complete full cycle of antibiotics as directed avoid scratching squeezing pimples. Instructed on good hand washing. Emergency instructions: The patient was instructed to present to the nearest Emergency Department or call 911 should their symptoms return or worsen. New Medications: Levofloxacin (Levofloxacin) 500 Mg Tablet 1 TAB PO DAILY for 7 Days, #7 TAB 0 Refills Time spent arranging discharge: 31-60 minutes ATTESTATION BY PHYSICIAN I have seen and examined the patient. I reviewed the documentation, medical d ecision making, and treatment plan as noted by the mid-level provider above. I agree with the findings and plan of care. Stacy De La Cruz MD, ELIZABETH NP May 06, 2025 12:43
--- NOTE | 2025-05-06 17:00 | NUR ---
DC / pending ct Patient states he needs to dc today, needs to return to work. Patient requesting return to work and prescription - I explained that we are pending CT results and this has been escalated. Notified LICENSED INSURANCE AGENT that patient is eager to leave and CT not available. Herman LICENSED INSURANCE AGENT stated Mojgan CORTES notified to escalate reading / results. Patient updated.
--- NOTE | 2025-05-06 17:59 | HMCIMG ---
EXAM: CT Abdomen and Pelvis without and with IV contrast. CLINICAL HISTORY: Scrotal abscess. TECHNIQUE: Post-contrast thin collimated axial CT images of the abdomen and pelvis were obtained, with sagittal and coronal reformatted images also submitted. A CT scan is done according to ALARA (As Low As Reasonably Achievable). COMPARISON: None. FINDINGS: Liver is enlarged in size, measuring 20 cms, with hypo-dense parenchymal attenuation consistent with diffuse fatty steatosis. No focal abnormality within the gallbladder, pancreas, spleen, adrenals, or right kidney. A focal heterogeneously enhancing nodular lesion measuring 1.8 x 2.7 cm arising from the lower pole of the left kidney, CT urography is recommended with histopathological correlation to rule out a complex cyst or any malignant lesion. There is no apparent bowel wall thickening. Bowel loops are regular in caliber without evidence of obstruction or ileus. The appendix is normal. There is no abnormality within the urinary bladder. The prostate shows calcification. Mild thickening of the bilateral scrotal skin and subcutaneous tissue may represent scrotal wall cellulitis. No abscess identified. Abdominal and pelvic vessels are patent. No lymphadenopathy. No free fluid. There is no acute osseous abnormality. Bibasal atelectatic opacities are seen in both lower lobes. IMPRESSION: Mild thickening of the bilateral scrotal skin and subcutaneous tissue may represent scrotal wall cellulitis. No abscess identified. Hepatomegaly with diffuse fatty steatosis. No bowel obstruction or inflammation. Normal appendix. No urinary calculi. No hydronephrosis. 2.7 x 1.8 cm complex exophytic lesion arising from the lower pole of the left kidney. Further evaluation with a renal protocol CT or MRI is recommended. /[place]
--- NOTE | 2025-05-06 18:30 | NUR ---
CT results Ct results back, patient decided he would like to stay for continued work up d/t abnormal results. Per HORSE STUD MANAGER Herman, order renal CT protocol as recommended in impression. Spoke with truck technician - that ct covers same image as already taken, CT urogram also recommended and ordered. Patient will need to have done tomorrow due to recent contrast use.
[2025-05-06] MEDS: MELATONIN 5 MG TABLET PO SCH (21:40)
[2025-05-07] VITALS (7 sets, daily range): BP systolic 129–158; BP diastolic 45–92; PULSE 70–85; RESP 20–22; TEMP 97.6–98.4; O2SAT 94–95
[2025-05-07 05:07] LABS: IMMATURE GRANULOCYTE ABSOLUTE 0.08 K/uL (0-1); NUCLEATED RED BLOOD CELLS 0.0 % (0.0-0.19); PLATELET COUNT (AUTO) 287 K/uL (130-400); RED BLOOD CELL COUNT(AUTO) 4.90 MIL/uL (4.50-6.20); RED CELL DISTRIBUTION WIDTH 13.9 % (11.0-15.5); WHITE BLOOD COUNT (AUTO) 12.3 K/uL (4.8-10.8)
[2025-05-07 05:25] LABS: ASPARTATE AMINOTRANSFERASE 14.0 U/L (10-37); CREATININE 0.7 mg/dL (0.5-1.3); GLOMERULAR FILTR. RATE CALC 114.0 mL/min (>90); GLUCOSE,RANDOM 138.0 mg/dL (70-105); SODIUM SERUM 139.0 mmol/L (136-145); TOTAL PROTEIN, SERUM 6.6 g/dL (6.0-8.3); UREA NITROGEN, BLOOD 11.0 mg/dL (7-18)
--- NOTE | 2025-05-07 10:15 | PN ---
[facility] PROGRESS NOTE Date of Service: May 07, 2025 Time of Service: 10:03 SUBJECTIVE: [ ] Mr. Kaur is a 49-year-old male that was seen and examined today on 05/03/2025. Patient is a good historian of personal health Patient reports that he came to the emergency department with a chief complaint of scrotal pain. Onset was April 28. Location is scrotum. Duration is constant. Character is described as soreness. There was no alleviating factors. 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 Patient reports associated scrotal wound that is draining and fever that began yesterday. Today in the emergency department WBCs 14.9, glucose 173, urinalysis unremarkable, testicular ultrasound shows left hemiscrotum hydrocele. Emergency room physician recommended patient be admitted with a diagnosis of sepsis. Additionally patient had a heart rate of 105, WBCs 14.9 and suspected source of infection being scrotal wound meeting clinical sepsis criteria. 05/04/25 patient is sitting on the edge of the bed he remains in ER setting holding. Patient denies scrotal pain. Tolerating IV antibiotics. Discussed the plan of care answer all questions appropriately. 05/05/25 patient is seen and examined patient reports tolerating antibiotics no drainage reported we will continue to follow cultures urology pending. Late Entry: 05/06/25 patient discharged was placed on Hold: wound cultures: MRSA and Enterococcus faecalis finding on CT abd/pelvis revealed: 2.7 x 1.8 cm complex exophytic lesion arising from the lower pole of the left will need a renal protocol CT will be ordered. patient understood he will not be discharged home verbalized understanding. : REVIEW OF SYSTEMS a 12 point ROS obtained all relevant positive document otherwise ROS negative PHYSICAL EXAM GENERAL APPEARANCE: The patient is awake, alert, and oriented, in no acute cardiopulmonary distress. NEUROLOGICAL: Cranial nerves II-XII grossly intact. Motor is 5/5 in bilateral upper and lower extremities proximal to distal. No sensory deficits. HEENT: Face is symmetric. Pupils are equal and reactive. Extraocular movements are intact. NECK: Supple. No JVD. No thyromegaly. No submental, submandibular, pre- /postauricular, occipital or supraclavicular lymphadenopathy. CHEST: Normal chest expansion. No Telemetry. LUNGS: Absence of any rales, rhonchi or any wheezing. CARDIOVASCULAR: Regular. S1 and S2 normal. No appreciable rubs, murmurs or gallops. ABDOMEN: Soft, nontender, and nondistended. There is no rebound, voluntary guarding, or rigidity. : Deferred. No Fung. EXTREMITIES: Non-edematous and not cyanotic. No clubbing. Good capillary refill. SKIN: No skin breakdown. Vital Signs (last 8hr) Date Time Temp Pulse Resp B/P (MAP) Pulse Ox O2 Delivery O2 Flow Rate FiO2 05/07/25 08:00 97.5 73 20 156/89 95 Room Air 21 05/07/25 04:00 97.7 70 20 158/92 97 Room Air LABS: Laboratory: Test 05/07/25 05:36 05/07/25 04:40 Range/Units Whole Blood Glucose 154 H 70-110 MG/DL White Blood Count 12.3 H 4.8-10.8 K/uL Red Blood Count 4.90 4.50-6.20 MIL/uL Hemoglobin 15.0 14.0-18.0 g/dL Hematocrit 44.9 42-54 % Mean Corpuscular Volume 91.6 79-99 fL Mean Corpuscular Hemoglobin 30.6 27.0-33.0 pg Mean Corpuscular Hemoglobin Concent 33.4 32.0-36.0 g/dL Red Cell Distribution Width 13.9 11.0-15.5 % Platelet Count 287 130-400 K/uL Mean Platelet Volume 9.8 7.5-10.5 fL Immature Granulocyte % (Auto) 0.7 0-1 % Neutrophils (%) (Auto) 64.9 40.0-77.0 % Lymphocytes (%) (Auto) 23.8 21.0-51.0 % Monocytes (%) (Auto) 7.3 3.0-13.0 % Eosinophils (%) (Auto) 2.9 0.0-8.0 % Basophils (%) (Auto) 0.4 0.0-5.0 % Neutrophils # (Auto) 8.0 H 1.8-7.7 K/uL Lymphocytes # (Auto) 2.9 1.0-4.8 K/uL Monocytes # (Auto) 0.9 0.1-1.0 K/uL Eosinophils # (Auto) 0.36 0.00-0.70 K/uL Basophils # (Auto) 0.05 0.00-0.20 K/uL Absolute Immature Granulocyte (auto 0.08 0-1 K/uL Nucleated Red Blood Cells 0.0 0.0-0.19 % Sodium Level 139 136-145 mmol/L Potassium Level 3.9 3.5-5.1 mmol/L Chloride Level 102 101-111 mmol/L Carbon Dioxide Level 31 21-32 mmol/L Blood Urea Nitrogen 11 7-18 mg/dL Creatinine 0.7 0.5-1.3 mg/dL Glomerular Filtration Rate Calc 114 >90 mL/min Random Glucose 138 H 70-105 mg/dL Total Calcium 8.7 8.5-10.1 mg/dL Magnesium Level 1.90 1.80-2.40 mg/dL Total Bilirubin 0.4 0.2-1.0 mg/dL Aspartate Amino Transf (AST/SGOT) 14 10-37 U/L Alanine Aminotransferase (ALT/SGPT) 35 12-78 U/L Alkaline Phosphatase 91 50-136 U/L Total Protein 6.6 6.0-8.3 g/dL Albumin 3.2 L 3.5-5.0 g/dL Current Medications Medications (Trade) Dose Ordered Sig/Ramiro Route PRN Reason Start Time Stop Time Status Last Admin Dose Admin Acetaminophen (TYLenol 325MG TAB) 650 mg Q6H PRN PO TEMPERATURE GREATER THAN 101.5 05/03/25 22:00 06/02/25 21:59 05/04/25 20:38 650 MG Enoxaparin Sodium (Lovenox) 40 mg DAILY SQ 05/04/25 09:00 06/03/25 08:59 05/07/25 09:09 40 MG Famotidine (Pepcid 20mg Tab) 20 mg DAILY PO 05/04/25 09:00 06/03/25 08:59 05/06/25 09:32 20 MG Hydralazine HCl (APRESOLine 20MG INJ) 10 mg Q6H PRN IV For:SBP above 160;DBP above 90 05/03/25 22:00 06/02/25 21:59 Insulin Human Regular (humuLIN R 100 UNIT/ML 3ML) INSULIN SLIDING SCAL... ACHS SQ 05/04/25 07:30 06/03/25 07:29 05/06/25 20:15 12 UNIT Levofloxacin/ Dextrose 100 ml @ 100 mls/hr Q24H IV 05/06/25 10:00 05/16/25 09:59 05/07/25 09:09 100 MLS/HR Magnesium Sulfate 50 ml @ 0 mls/hr PROTOCOL PRN IV MAGNESIUM PROTOCOL 05/06/25 06:00 06/05/25 05:59 05/06/25 07:49 20 MLS/HR Melatonin (Melatonin) 5 mg HSPRN PO 05/06/25 04:00 06/05/25 03:59 05/06/25 21:40 5 MG Morphine Sulfate (morPHINE 2MG SYG) 2 mg Q4H PRN IVP SEVERE PAIN (7-10) 05/03/25 22:00 05/10/25 21:59 05/06/25 21:55 2 MG Nicotine (Nicoderm) 21 mg DAILY TD 05/05/25 09:00 06/04/25 08:59 05/07/25 09:08 21 MG Ondansetron HCl (zoFRAN 4MG INJ) 4 mg Q6H PRN IV NAUSEA/VOMITING 05/03/25 22:00 06/02/25 21:59 05/04/25 09:27 4 MG Piperacillin Sod/ Tazobactam Sod 50 ml @ 200 mls/hr STAT STAT IVPB 05/03/25 18:29 05/03/25 18:43 DC 05/03/25 19:03 200 MLS/HR Piperacillin Sod/ Tazobactam Sod (Zosyn 3.375gm+NS 50ml) 3.375 gm Q8H IVPB 05/04/25 03:00 05/06/25 09:43 DC 05/06/25 03:24 3.375 GM Potassium Chloride 100 ml @ 100 mls/hr AD PRN IV POTASSIUM PROTOCOL 05/06/25 06:00 06/05/25 05:59 Potassium Chloride (K-Dur/Klor-Con 20meq) 20 meq AD PRN PO POTASSIUM PROTOCOL 05/06/25 06:00 06/05/25 05:59 05/06/25 11:57 20 MEQ Potassium Chloride (KCl 10% Elixir 20meq/15ml) 20 meq AD PRN PO POTASSIUM PROTOCOL 05/06/25 06:00 06/05/25 05:59 Sodium Chloride (NS 50ml) 50 ml AD IV 05/03/25 21:45 05/06/25 08:20 DC DIAGNOSTICS / RADIOLOGY: [ ] Assessment: Sepsis, POA Scrotal wound, POA infected with gram positive MRSA and Enterococcus Faecalis Left hemiscrotum hydrocele, POA no intervention Leukocytosis, POA improving Tobacco dependence, POA discussed on smoking cessation Diabetes mellitius type2 advised on lifestyle changes modified diet and exercise Hypertension Electrolytes derangement magnesemia hypokalemia corrected 2.7 x 1.8 cm complex exophytic lesion arising from the lower pole of the left kidney PLAN: Admit:surgical medical condition:guarded Status: full code IVF: [facility] urologist and ID( Enterococcus Faecalis and Staphylococcus aureus Antibiotics: Vancomycin 1gm IV q12 hrs Microbiology: blood culture negative wound cultures noted Imaging: CT renal protocol today will follow up results Labs cbc, cmp, mag+ ac/hs monitoring with SSRI coverage Replace electrolytes as needed as per protocol to keep potassium above 4.0 magnesium 2.0. smoking cessation nicotine patch daily Pain management: Morphine 2 mg IV as needed Supportive measures: DVT ppx, GI ppx all questions answered Supervising MD: Dr. De La Cruz P c/d This document was generated in part using voice recognition software, occasional wrong word or sound alike substitutions may have occurred due to the inherent limitations of voice recognition software. Read the chart carefully and recognize using context, where the substitutions have occurred. 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 I reviewed the documentation, medical decision making, and treatment plan as noted by the mid-level provider above. I agree with the findings and plan of care. Stacy De La Cruz MD, ELIZABETH NP May 07, 2025 10:15
--- NOTE | 2025-05-07 10:17 | PN ---
[facility] PROGRESS NOTE Date of Service: May 07, 2025 Time of Service: 10:17 SUBJECTIVE: [ ] Mr. Kaur is a 49-year-old male that was seen and examined today on 05/03/2025. Patient is a good historian of personal health Patient reports that he came to the emergency department with a chief complaint of scrotal pain. Onset was April 28. Location is scrotum. Duration is constant. Character is described as soreness. There was no alleviating factors. 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 Patient reports associated scrotal wound that is draining and fever that began yesterday. Today in the emergency department WBCs 14.9, glucose 173, urinalysis unremarkable, testicular ultrasound shows left hemiscrotum hydrocele. Emergency room physician recommended patient be admitted with a diagnosis of sepsis. Additionally patient had a heart rate of 105, WBCs 14.9 and suspected source of infection being scrotal wound meeting clinical sepsis criteria. 05/04/25 patient is sitting on the edge of the bed he remains in ER setting holding. Patient denies scrotal pain. Tolerating IV antibiotics. Discussed the plan of care answer all questions appropriately. 05/05/25 patient is seen and examined patient reports tolerating antibiotics no drainage reported we will continue to follow cultures urology pending. Late Entry: 05/06/25 patient discharged was placed on Hold: wound cultures: MRSA and Enterococcus faecalis finding on CT abd/pelvis revealed: 2.7 x 1.8 cm complex exophytic lesion arising from the lower pole of the left will need a renal protocol CT will be ordered. patient understood he will not be discharged home verbalized understanding. 05/07/25 PATIENT IS LYING IN BED PATIENT IS SCHEDULED FOR A CT RENAL. PATIENT REPORTS BEING ALLERGIC TO VANCOMYCIN ID WAS CONSULTED FOR ANTIBIOTICS STEWARDSHIP RECOMMENDATIONS. PATIENT DENIED CHEST PAIN OR SHORTNESS FOR BREATH DISCUSSED THE PLAN OF CARE VERBALIZED UNDERSTANDING REVIEW OF SYSTEMS a 12 point ROS obtained all relevant positive document otherwise ROS negative PHYSICAL EXAM GENERAL APPEARANCE: The patient is awake, alert, and oriented, in no acute cardiopulmonary distress. NEUROLOGICAL: Cranial nerves II-XII grossly intact. Motor is 5/5 in bilateral upper and lower extremities proximal to distal. No sensory deficits. HEENT: Face is symmetric. Pupils are equal and reactive. Extraocular movements are intact. NECK: Supple. No JVD. No thyromegaly. No submental, submandibular, pre- /postauricular, occipital or supraclavicular lymphadenopathy. CHEST: Normal chest expansion. No Telemetry. LUNGS: Absence of any rales, rhonchi or any wheezing. CARDIOVASCULAR: Regular. S1 and S2 normal. No appreciable rubs, murmurs or gallops. ABDOMEN: Soft, nontender, and nondistended. There is no rebound, voluntary guarding, or rigidity. : Deferred. No Fung. EXTREMITIES: Non-edematous and not cyanotic. No clubbing. Good capillary refill. SKIN: No skin breakdown. Vital Signs (last 8hr) Date Time Temp Pulse Resp B/P (MAP) Pulse Ox O2 Delivery O2 Flow Rate FiO2 05/07/25 08:00 97.5 73 20 156/89 95 Room Air 21 05/07/25 04:00 97.7 70 20 158/92 97 Room Air LABS: Laboratory: Test 05/07/25 05:36 05/07/25 04:40 Range/Units Whole Blood Glucose 154 H 70-110 MG/DL White Blood Count 12.3 H 4.8-10.8 K/uL Red Blood Count 4.90 4.50-6.20 MIL/uL Hemoglobin 15.0 14.0-18.0 g/dL Hematocrit 44.9 42-54 % Mean Corpuscular Volume 91.6 79-99 fL Mean Corpuscular Hemoglobin 30.6 27.0-33.0 pg Mean Corpuscular Hemoglobin Concent 33.4 32.0-36.0 g/dL Red Cell Distribution Width 13.9 11.0-15.5 % Platelet Count 287 130-400 K/uL Mean Platelet Volume 9.8 7.5-10.5 fL Immature Granulocyte % (Auto) 0.7 0-1 % Neutrophils (%) (Auto) 64.9 40.0-77.0 % Lymphocytes (%) (Auto) 23.8 21.0-51.0 % Monocytes (%) (Auto) 7.3 3.0-13.0 % Eosinophils (%) (Auto) 2.9 0.0-8.0 % Basophils (%) (Auto) 0.4 0.0-5.0 % Neutrophils # (Auto) 8.0 H 1.8-7.7 K/uL Lymphocytes # (Auto) 2.9 1.0-4.8 K/uL Monocytes # (Auto) 0.9 0.1-1.0 K/uL Eosinophils # (Auto) 0.36 0.00-0.70 K/uL Basophils # (Auto) 0.05 0.00-0.20 K/uL Absolute Immature Granulocyte (auto 0.08 0-1 K/uL Nucleated Red Blood Cells 0.0 0.0-0.19 % Sodium Level 139 136-145 mmol/L Potassium Level 3.9 3.5-5.1 mmol/L Chloride Level 102 101-111 mmol/L Carbon Dioxide Level 31 21-32 mmol/L Blood Urea Nitrogen 11 7-18 mg/dL Creatinine 0.7 0.5-1.3 mg/dL Glomerular Filtration Rate Calc 114 >90 mL/min Random Glucose 138 H 70-105 mg/dL Total Calcium 8.7 8.5-10.1 mg/dL Magnesium Level 1.90 1.80-2.40 mg/dL Total Bilirubin 0.4 0.2-1.0 mg/dL Aspartate Amino Transf (AST/SGOT) 14 10-37 U/L Alanine Aminotransferase (ALT/SGPT) 35 12-78 U/L Alkaline Phosphatase 91 50-136 U/L Total Protein 6.6 6.0-8.3 g/dL Albumin 3.2 L 3.5-5.0 g/dL Current Medications Medications (Trade) Dose Ordered Sig/Ramiro Route PRN Reason Start Time Stop Time Status Last Admin Dose Admin Acetaminophen (TYLenol 325MG TAB) 650 mg Q6H PRN PO TEMPERATURE GREATER THAN 101.5 05/03/25 22:00 06/02/25 21:59 05/04/25 20:38 650 MG Enoxaparin Sodium (Lovenox) 40 mg DAILY SQ 05/04/25 09:00 06/03/25 08:59 05/07/25 09:09 40 MG Famotidine (Pepcid 20mg Tab) 20 mg DAILY PO 05/04/25 09:00 06/03/25 08:59 05/06/25 09:32 20 MG Hydralazine HCl (APRESOLine 20MG INJ) 10 mg Q6H PRN IV For:SBP above 160;DBP above 90 05/03/25 22:00 06/02/25 21:59 Insulin Human Regular (humuLIN R 100 UNIT/ML 3ML) INSULIN SLIDING SCAL... ACHS SQ 05/04/25 07:30 06/03/25 07:29 05/06/25 20:15 12 UNIT Levofloxacin/ Dextrose 100 ml @ 100 mls/hr Q24H IV 05/06/25 10:00 05/16/25 09:59 05/07/25 09:09 100 MLS/HR Magnesium Sulfate 50 ml @ 0 mls/hr PROTOCOL PRN IV MAGNESIUM PROTOCOL 05/06/25 06:00 06/05/25 05:59 05/06/25 07:49 20 MLS/HR Melatonin (Melatonin) 5 mg HSPRN PO 05/06/25 04:00 06/05/25 03:59 05/06/25 21:40 5 MG Morphine Sulfate (morPHINE 2MG SYG) 2 mg Q4H PRN IVP SEVERE PAIN (7-10) 05/03/25 22:00 05/10/25 21:59 05/06/25 21:55 2 MG Nicotine (Nicoderm) 21 mg DAILY TD 05/05/25 09:00 06/04/25 08:59 05/07/25 09:08 21 MG Ondansetron HCl (zoFRAN 4MG INJ) 4 mg Q6H PRN IV NAUSEA/VOMITING 05/03/25 22:00 06/02/25 21:59 05/04/25 09:27 4 MG Piperacillin Sod/ Tazobactam Sod 50 ml @ 200 mls/hr STAT STAT IVPB 05/03/25 18:29 05/03/25 18:43 DC 05/03/25 19:03 200 MLS/HR Piperacillin Sod/ Tazobactam Sod (Zosyn 3.375gm+NS 50ml) 3.375 gm Q8H IVPB 05/04/25 03:00 05/06/25 09:43 DC 05/06/25 03:24 3.375 GM Potassium Chloride 100 ml @ 100 mls/hr AD PRN IV POTASSIUM PROTOCOL 05/06/25 06:00 06/05/25 05:59 Potassium Chloride (K-Dur/Klor-Con 20meq) 20 meq AD PRN PO POTASSIUM PROTOCOL 05/06/25 06:00 06/05/25 05:59 05/06/25 11:57 20 MEQ Potassium Chloride (KCl 10% Elixir 20meq/15ml) 20 meq AD PRN PO POTASSIUM PROTOCOL 05/06/25 06:00 06/05/25 05:59 Sodium Chloride (NS 50ml) 50 ml AD IV 05/03/25 21:45 05/06/25 08:20 DC DIAGNOSTICS / RADIOLOGY: [ ] Assessment: Sepsis, POA Scrotal wound, POA infected with gram positive MRSA and Enterococcus Faecalis Left hemiscrotum hydrocele, POA no intervention Leukocytosis, POA improving Tobacco dependence, POA discussed on smoking cessation Diabetes mellitius type2 advised on lifestyle changes modified diet and exercise Hypertension Electrolytes derangement magnesemia hypokalemia corrected 2.7 x 1.8 cm complex exophytic lesion arising from the lower pole of the left kidney ALLERGIC TO VANCOMYCIN PLAN: Admit:surgical medical condition:guarded Status: full code IVF: [facility] urologist and ID( Enterococcus Faecalis and Staphylococcus aureus Antibiotics: ID FOR ANTIBIOTICS RECOMMENDATIONS IS CURRENTLY ON LEVAQUIN Microbiology: blood culture negative wound cultures noted Imaging: CT renal protocol today will follow up results Labs cbc, cmp, mag+ ac/hs monitoring with SSRI coverage Replace electrolytes as needed as per protocol to keep potassium above 4.0 mag nesium 2.0. smoking cessation nicotine patch daily Pain management: Morphine 2 mg IV as needed Supportive measures: DVT ppx, GI ppx all questions answered Supervising MD: Dr. De La Cruz P c/d This document was generated in part using voice recognition software, occasional wrong word or sound alike substitutions may have occurred due to the inherent limitations of voice recognition software. Read the chart carefully and recognize using context, where the substitutions have occurred. Although every effort was made to edit the content, supervising floorperson and typing errors may occur ATTESTATION BY PHYSICIAN I have seen and examined the patient. I reviewed the documentation, medical decision making, and treatment plan as noted by the mid-level provider above. I agree with the findings and plan of care. Stacy De La Cruz MD, ELIZABETH NP May 07, 2025 10:17
[2025-05-07] MEDS ORDERED: VANCOMYCIN KIT 1 GM/250 ML IV.KIT IV SCH (10:30)
[2025-05-07] MEDS ORDERED: VANCOMYCIN 2GM/500 ML BAG 500 ML IV ONE (11:00)
[2025-05-07] MEDS ORDERED: IOHEXOL 350 MG/ML 100ML INFUS..BTL IV ONE (13:29)
--- NOTE | 2025-05-07 16:42 | HMCIMG ---
EXAM: CT Abdomen and Pelvis with and without IV contrast CLINICAL HISTORY: CT follow up - left pole kidney lesion TECHNIQUE: Axial computed tomography images of the abdomen and pelvis with and without intravenous contrast. CT scan performed according to ALARA. Automated exposure control used during exam. CONTRAST: with and without intravenous contrast. COMPARISON: CT images dated May 05, 2025 FINDINGS: LUNG BASES: The lung bases appear clear. No pleural effusions are seen. LIVER: Hepatomegaly and hepatic steatosis. GALLBLADDER AND BILE DUCTS: The gallbladder appears within normal limits. No radioopaque gallstones are seen. No biliary ductal dilatation is evident. PANCREAS: Unremarkable. SPLEEN: Unremarkable. ADRENAL GLANDS: Unremarkable. KIDNEYS, URETERS, AND BLADDER: The kidneys appear within normal limits. 2.2 x 2.6 cm simple cyst within the inferior pole of the left kidney. There is no hydronephrosis or hydroureter. No urinary calculi are seen. STOMACH AND BOWEL: Unremarkable appearance of the stomach and bowel. No evidence of bowel obstruction. No evidence suggesting enteritis or colitis. APPENDIX: No evidence of acute appendicitis on CT examination. PERITONEUM: No free fluid. No free air. LYMPH NODES: No lymphadenopathy is evident. REPRODUCTIVE: Unremarkable as visualized. VASCULATURE: No evidence of abdominal aortic aneurysm. BONES: No aggressive appearing osseous lesion. No acute osseous pathology evident. IMPRESSION: 1. No acute intraabdominal or pelvic pathology. 2. 2.2 x 2.6 cm simple left inferior pole renal cyst. /[place]
[2025-05-07] MEDS: ZOSYN 3.375GM +NS 50ML IV SCH (16:45)
[2025-05-07] MEDS ORDERED: VANCOMYCIN 1.25 GM/250 ML BAG 250 ML IV SCH (21:00)
[2025-05-08] VITALS: BP 126/72; PULSE 89; RESP 20; TEMP 97.9
[2025-05-08 04:00] VITALS: BP 120/59; PULSE 73; RESP 20; TEMP 98.5
[2025-05-08 05:34] LABS: IMMATURE GRANULOCYTE ABSOLUTE 0.06 K/uL (0-1); NUCLEATED RED BLOOD CELLS 0.0 % (0.0-0.19); PLATELET COUNT (AUTO) 313 K/uL (130-400); RED BLOOD CELL COUNT(AUTO) 5.07 MIL/uL (4.50-6.20); RED CELL DISTRIBUTION WIDTH 13.9 % (11.0-15.5); WHITE BLOOD COUNT (AUTO) 10.8 K/uL (4.8-10.8)
[2025-05-08 05:47] LABS: ASPARTATE AMINOTRANSFERASE 13.0 U/L (10-37); CREATININE 0.8 mg/dL (0.5-1.3); GLOMERULAR FILTR. RATE CALC 110.0 mL/min (>90); GLUCOSE,RANDOM 134.0 mg/dL (70-105); SODIUM SERUM 138.0 mmol/L (136-145); TOTAL PROTEIN, SERUM 6.9 g/dL (6.0-8.3); UREA NITROGEN, BLOOD 16.0 mg/dL (7-18)
[2025-05-08 08:00] VITALS: BP 116/56; PULSE 71; RESP 21; TEMP 97.9; TEMP 98.4; O2SAT 92
[2025-05-08] MEDS: ZOSYN 3.375GM +NS 50ML IV SCH (09:12)
--- NOTE | 2025-05-08 09:37 | CONS ---
INFECTIOUS DISEASE CONSULTATION DATE OF SERVICE: 05/07/2025. REQUESTING PHYSICIAN: Caren Sutton NP REASON FOR CONSULTATION: Sepsis and scrotal abscess. HISTORY OF PRESENT ILLNESS: A 49-year-old male with morbid obesity, presented to the hospital with left perineal pain, swelling, and redness. The patient claims symptoms have been going on for about 2 weeks. . The patient had imaging done which shows scrotal wall cellulitis. The patient has been seen by Urology. No surgical intervention planned at this time. The patient is on antibiotic, vancomycin, and cefepime. No bleeding tendency. No rashes or itchiness. Culture has been done, which came back positive for Enterococcus faecalis and MSSA. No dysuria or urinary frequency. PAST MEDICAL HISTORY: * Obesity. * Chronic tobacco use. * Alcohol use. PAST SURGICAL HISTORY: * Left shoulder surgery. * Bilateral knee injection. ALLERGIES: No known drug allergies. CURRENT MEDICATIONS: Include: * Vancomycin. * Lovenox. * Zofran. SOCIAL HISTORY: Lives with . 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 The patient smokes and uses alcohol. No illicit drug use. FAMILY HISTORY: Noncontributory. REVIEW OF SYSTEMS: Greater than 10 systems were reviewed, negative except as documented above. PHYSICAL EXAMINATION: GENERAL: A young male, awake. VITAL SIGNS: Temperature 97.9, pulse 77, respirations 21, BP 129/71. EYES: No icterus. Pupils equal and reactive. HENT: No oral thrush seen. Moist oral mucosa. NECK: Supple. No JVD or thyromegaly. LUNGS: Good air entry. No rales, no rhonchi. CARDIOVASCULAR: S1, S2, regular. No murmur heard. ABDOMEN: Morbidly obese, soft, nontender. Bowel sound is present. CENTRAL NERVOUS SYSTEM: Awake, alert, oriented x 3. No focal deficits. SKIN: No rashes, no itchiness. LYMPHATIC: No peripheral lymphadenopathy. BACK: No deformity, no pressure ulcer. GENITOURINARY: The patient has an area of induration involving the left perineal area. LABORATORY DATA: Sodium 139, potassium 3.9, BUN 7, creatinine 0.7. WBC 12.2, hemoglobin 15.0, platelets 282. Urinalysis is negative. Perineal wound culture growing MSSA and enterococcus faecalis. Blood culture, no growth for three days. RADIOLOGY: CT of the abdomen and pelvis results reviewed. ASSESSMENT: A 49-year-old male presents with perineal pain, swelling, and redness. CURRENT PROBLEMS: Include: * Sepsis. * Left perineal abscess. * Polymicrobic infection. * Morbid obesity. * Leukocytosis. PLAN: * Discontinue vancomycin. * Start the patient on Zosyn. * Continue wound care. * Continue pain management. * Continue DVT prophylaxis. * Continue antiemetics. * The patient will be followed up closely. Thank you for allowing me to participate in the care of this patient. TID: [id number] RECEIPT: [id number]
[2025-05-08] MEDS ORDERED: METF-910 PO (10:33)
--- NOTE | 2025-05-08 10:38 | DS ---
Discharge Summary Hospital Course Summary: Mr. Kaur is a 49-year-old male that was seen and examined today on 05/03/2025. Patient is a good historian of personal health Patient reports that he came to the emergency department with a chief complaint of scrotal pain. Onset was April 28. Location is scrotum. Duration is constant. Character is described as soreness. There was no alleviating factors. 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 Patient re ports associated scrotal wound that is draining and fever that began yesterday. Today in the emergency department WBCs 14.9, glucose 173, urinalysis unremarkable, testicular ultrasound shows left hemiscrotum hydrocele. Emergency room physician recommended patient be admitted with a diagnosis of sepsis. Additionally patient had a heart rate of 105, WBCs 14.9 and suspected source of infection being scrotal wound meeting clinical sepsis criteria. 05/04/25 patient is sitting on the edge of the bed he remains in ER setting holding. Patient denies scrotal pain. Tolerating IV antibiotics. Discussed the plan of care answer all questions appropriately. 05/05/25 patient is seen and examined patient reports tolerating antibiotics no drainage reported we will continue to follow cultures urology pending. Late Entry: 05/06/25 patient discharged was placed on Hold: wound cultures: MRSA and Enterococcus faecalis finding on CT abd/pelvis revealed: 2.7 x 1.8 cm complex exophytic lesion arising from the lower pole of the left will need a renal protocol CT will be ordered. patient understood he will not be discharged home verbalized understanding. 05/07/25 PATIENT IS LYING IN BED PATIENT IS SCHEDULED FOR A CT RENAL. PATIENT REPORTS BEING ALLERGIC TO VANCOMYCIN ID WAS CONSULTED FOR ANTIBIOTICS STEWARDSHIP RECOMMENDATIONS. PATIENT DENIED CHEST PAIN OR SHORTNESS FOR BREATH DISCUSSED THE PLAN OF CARE VERBALIZED UNDERSTANDING 05/08/2025. Patient is clinically stable for discharge was cleared by ID we will send on oral antibiotics for 10 days Levaquin 750 p.o. daily and amoxicillin 500 b.i.d. both for 10 days. Metformin ER 500 p.o. daily advised patient on tight glycemic control below 200 modified diet and lifestyle changes, smoking cessation. Patient to follow-up with PCP to manage his diabetes. All questions and concerns were addressed went over CT renal protocol imaging patient denied chest pain, shortness a breath, reports no drainage from wound. Advised patient to avoid picking on pimples scratching scrotal. Procedure(s): REASON: CT follow up - left pole kidney lesion ORDERING PHYSICIAN: JOANNA LOPEZ NP PROCEDURE: UROGRAM - CT UROGRAM (ABD/PEL WWO) EXAM: CT Abdomen and Pelvis with and without IV contrast CLINICAL HISTORY: CT follow up - left pole kidney lesion TECHNIQUE: Axial computed tomography images of the abdomen and pelvis with and without intravenous contrast. CT scan performed according to ALARA. Automated exposure control used during exam. CONTRAST: with and without intravenous contrast. COMPARISON: CT images dated May 05, 2025 FINDINGS: LUNG BASES: The lung bases appear clear. No pleural effusions are seen. LIVER: Hepatomegaly and hepatic steatosis. GALLBLADDER AND BILE DUCTS: The gallbladder appears within normal limits. No radioopaque gallstones are seen. No biliary ductal dilatation is evident. PANCREAS: Unremarkable. SPLEEN: Unremarkable. ADRENAL GLANDS: Unremarkable. KIDNEYS, URETERS, AND BLADDER: The kidneys appear within normal limits. 2.2 x 2.6 cm simple cyst within the inferior pole of the left kidney. There is no hydronephrosis or hydroureter. No urinary calculi are seen. STOMACH AND BOWEL: Unremarkable appearance of the stomach and bowel. No evidence of bowel obstruction. No evidence suggesting enteritis or colitis. APPENDIX: No evidence of acute appendicitis on CT examination. PERITONEUM: No free fluid. No free air. LYMPH NODES: No lymphadenopathy is evident. REPRODUCTIVE: Unremarkable as visualized. VASCULATURE: No evidence of abdominal aortic aneurysm. BONES: No aggressive appearing osseous lesion. No acute osseous pathology evident. IMPRESSION: 1. No acute intraabdominal or pelvic pathology. 2. 2.2 x 2.6 cm simple left inferior pole renal cyst. /[place] REASON: abcess to scrotum ORDERING PHYSICIAN: MARKELL HILL MD PROCEDURE: ABD PELWWO - CT ABDOMEN/PELVIS W/WO CONTRAS EXAM: CT Abdomen and Pelvis without and with IV contrast. CLINICAL HISTORY: Scrotal abscess. TECHNIQUE: Post-contrast thin collimated axial CT images of the abdomen and pelvis were obtained, with sagittal and coronal reformatted images also submitted. A CT scan is done according to ALARA (As Low As Reasonably Achievable). COMPARISON: None. FINDINGS: Liver is enlarged in size, measuring 20 cms, with hypo-dense parenchymal attenuation consistent with diffuse fatty steatosis. No focal abnormality within the gallbladder, pancreas, spleen, adrenals, or right kidney. A focal heterogeneously enhancing nodular lesion measuring 1.8 x 2.7 cm arising from the lower pole of the left kidney, CT urography is recommended with histopathological correlation to rule out a complex cyst or any malignant lesion. There is no apparent bowel wall thickening. Bowel loops are regular in caliber without evidence of obstruction or ileus. The appendix is normal. There is no abnormality within the urinary bladder. The prostate shows calcification. Mild thickening of the bilateral scrotal skin and subcutaneous tissue may represent scrotal wall cellulitis. No abscess identified. Abdominal and pelvic vessels are patent. No lymphadenopathy. No free fluid. There is no acute osseous abnormality. Bibasal atelectatic opacities are seen in both lower lobes. IMPRESSION: Mild thickening of the bilateral scrotal skin and subcutaneous tissue may represent scrotal wall cellulitis. No abscess identified. Hepatomegaly with diffuse fatty steatosis. No bowel obstruction or inflammation. Normal appendix. No urinary calculi. No hydronephrosis. 2.7 x 1.8 cm complex exophytic lesion arising from the lower pole of the left kidney. Further evaluation with a renal protocol CT or MRI is recommended. /[place] Assessment/Plan: discharged Dx's Sepsis, POA Scrotal wound, POA infected with gram positive MRSA and Enterococcus Faecalis we will be discharged on oral antibiotics as directed by ID amoxicillin 500 p.o. t.i.d. Levaquin 750 p.o. every24 hours for 10 days Left hemiscrotum hydrocele, POA no intervention Leukocytosis, POA resolved Tobacco dependence, POA discussed on smoking cessation Diabetes mellitius type2 advised on lifestyle changes modified diet and exercise Hypertension Electrolytes derangement magnesemia hypokalemia corrected 2.7 x 1.8 cm complex exophytic lesion arising from the lower pole of the left kidney CAT scan renal protocol 2.2 x 2.6 cm simple left inferior pole renal cyst. ALLERGIC TO VANCOMYCIN PLAN: ADMISSION DATE: 05/03/2025 DISCHARGE DATE: 05/08/2025 DISPOSITION: Home CONDITION: Stable CHILDBIRTH EDUCATOR(S): Infectious disease urologist FOLLOW UP APPOINTMENT(S): PCP 2-[address] Jenn Benoit MD PROCEDURES: None IMAGING (S) report attached to summary : CT abdomen pelvis, Urogram CT MICROBIOLOGY: report attached to summary; urine cultures, wound cultures ACTIVITY: [facility] HOME MEDICATIONS none profile NEW MEDICATIONS written prescription provided by ID Levaquin 750 mg p.o. daily 10 days, amoxicillin 500 b.i.d. for 10 days, metformin ER 500 mg p.o. daily TEACHING: Advised patient on risk factors modification diet and exercise, smoking cessation. Patient is was advised to keep blood sugars below 200 repeat A1c in three months with PCP Emergency instructions: The patient was instructed to present to the nearest Emergency Department or call 911 should their symptoms return or worsen. New Medications: Metformin HCl (Metformin HCl ER) 500 Mg Tab.er.24h 1 TAB PO DAILY for 30 Days, #30 TAB 0 Refills Time spent arranging discharge: 31-60 minutes ATTESTATION BY PHYSICIAN I have seen and examined the patient. I reviewed the documentation, medical decision making, and treatment plan as noted by the mid-level provider above. I agree with the findings and plan of care. Stacy De La Cruz MD, ELIZABETH NP May 08, 2025 10:38
[2025-05-08 12:00] VITALS: BP 157/97; PULSE 78; RESP 20; TEMP 98
--- NOTE | 2025-05-08 12:52 | PN ---
INFECTIOUS DISEASE PROGRESS NOTE Date of Service: May 08, 2025 SUBJECTIVE: This 49 year old male patient is being seen today at bedside. No fever or chills. No nausea or vomiting. He is awake, alert and oriented x3. No chest pain or shortness of breath. Patient is laying in bed, calm. Denies dysuria or hematuria. No pain at this time. Patient remains on antibiotics. Patient cultures were positive for enterococcus faecalis and staphylococcus aureus. PO Levaquin and Amoxicillin will be prescribed to take at home once D/C. Went over plan of care with patient and at bedside stated understanding. PHYSICAL EXAM EYES: Anicteric. Pupils equal and reactive. HENT: No oral thrush seen, moist Oral mucosa NECK: Supple, no JVD or thyromegaly. LUNGS: Good air entry. No rales, no rhonchi. CARDIOVASCULAR: S1, S2 regular. No murmur heard. ABDOMEN: Soft, non tender, bowel sounds present, no organomegaly. obese CENTRAL NERVOUS SYSTEM: Awake, alert, oriented x 3. No focal deficits. SKIN: No rashes, no swelling. LYMPHATICS: No peripheral lymphadenopathy MUSCULOSKELETAL: No joint swelling, erythema or tenderness. EXTREMITIES: No cyanosis or clubbing BACK: No deformity, no pressure ulcer. GENITOURINARY: induration, involving left perineal area. Vital Sign (Last 12 Hours) 05/08/25 05/08/25 05/08/25 04:00 08:00 12:00 Temp 98.4 97.9 98.1 Pulse 73 71 78 Resp 20 21 20 B/P (MAP) 120/59 116/56 157/97 Pulse Ox 92 92 96 O2 Delivery Room Air Room Air Room Air FiO2 21 21 LABS: Laboratory: Test 05/08/25 11:20 05/08/25 05:11 Range/Units Whole Blood Glucose 228 #H 70-110 MG/DL Bedside Glucose Comment Notified Nurse White Blood Count 10.8 4.8-10.8 K/uL Red Blood Count 5.07 4.50-6.20 MIL/uL Hemoglobin 15.5 14.0-18.0 g/dL Hematocrit 46.2 42-54 % Mean Corpuscular Volume 91.1 79-99 fL Mean Corpuscular Hemoglobin 30.6 27.0-33.0 pg Mean Corpuscular Hemoglobin Concent 33.5 32.0-36.0 g/dL Red Cell Distribution Width 13.9 11.0-15.5 % Platelet Count 313 130-400 K/uL Mean Platelet Volume 10.0 7.5-10.5 fL Immature Granulocyte % (Auto) 0.6 0-1 % Neutrophils (%) (Auto) 64.1 40.0-77.0 % Lymphocytes (%) (Auto) 24.5 21.0-51.0 % Monocytes (%) (Auto) 7.0 3.0-13.0 % Eosinophils (%) (Auto) 3.3 0.0-8.0 % Basophils (%) (Auto) 0.5 0.0-5.0 % Neutrophils # (Auto) 6.9 1.8-7.7 K/uL Lymphocytes # (Auto) 2.7 1.0-4.8 K/uL Monocytes # (Auto) 0.8 0.1-1.0 K/uL Eosinophils # (Auto) 0.36 0.00-0.70 K/uL Basophils # (Auto) 0.05 0.00-0.20 K/uL Absolute Immature Granulocyte (auto 0.06 0-1 K/uL Nucleated Red Blood Cells 0.0 0.0-0.19 % Sodium Level 138 136-145 mmol/L Potassium Level 4.0 3.5-5.1 mmol/L Chloride Level 102 101-111 mmol/L Carbon Dioxide Level 28 21-32 mmol/L Blood Urea Nitrogen 16 7-18 mg/dL Creatinine 0.8 0.5-1.3 mg/dL Glomerular Filtration Rate Calc 110 >90 mL/min Random Glucose 134 H 70-105 mg/dL Total Calcium 8.7 8.5-10.1 mg/dL Magnesium Level 1.80 1.80-2.40 mg/dL Total Bilirubin 0.6 0.2-1.0 mg/dL Aspartate Amino Transf (AST/SGOT) 13 10-37 U/L Alanine Aminotransferase (ALT/SGPT) 31 12-78 U/L Alkaline Phosphatase 90 50-136 U/L Total Protein 6.9 6.0-8.3 g/dL Albumin 3.2 L 3.5-5.0 g/dL DIAGNOSTICS / RADIOLOGY: ASHLYN SALDANA MD ORDERED: AEROBIC CULTURE COMMENTS: Specimen Comment: scrotum Procedure Result Bailey Date-Time AEROBIC CULTURE Final 05/07/25-1016 [facility] COLON[facility] DESCRIPTION: REPORT 1: 1+ SKIN KEIRY ; STUDIES TO CONTINUE COAGULASE NEGATIVE STAPHYLOCOCCUS 1+ GRAM POSITIVE COCCI IN CLUSTERS STAPHYLOCOCCUS AUREUS SENSITIVITY TO FOLLOW REPORT 2: STUDIES TO CONTINUE REPORT 3: 1+ GRAM POSITIVE COCCI IN CHAINS . IDENTIFICATION AND SENSITIVITY TO FOLLOW NO FURTHER WORK-UP DONE ENTEROCOCCUS FAECALIS STAPHYLOCOCCUS AUREUS E FAECALIS S. AUREUS M.I.C. RX M.I.C. RX --------- ---- --------- ---- AMPICILLIN <=2 S ERYTHROMYCIN <=0.5 S GENTAMICIN <=4 S LEVOFLOXACIN <=1 S VANCOMYCIN 1 S 1 S OXACILLIN PAUL 1 S RIFAMPIN <=1 S GENTAMICIN Synergy Screen <=500 S PENICILLIN 8 S >8 [place] TRIMETHOPRIM/SUFLAMETHOXAZOLE <=0.5/9.5 S ENTEROCOCCUS FAECALIS: POSITIVE COMBO 34 Gentamicin Synergy Screen S -- @ [facility] Test Performed at: [facility] [address] [facility] Boss: James Brar D.O. RUN DATE: 05/07/25 [facility] [address] RUN TIME: [id number] [address], [place] [address] Department of Laboratories CLIA # [id number] Hide Grader: Zonia Casiano DO Specimen Report SPEC: [id number] PATIENT: SHAHZAD EDGAR [id number] (Continued) CONTINUED ON NEXT PAGE ASSESSMENT: * Sepsis. * Left perineal abscess. * Polymicrobic infection. * Morbid obesity. * Leukocytosis. PLAN: * Continue Zosyn. * Continue wound care. * Continue pain management. * Continue DVT prophylaxis. * Continue antiemetics. * Levaquin PO once ready to DC for 10 days * Amoxicillin PO once ready to be DC for 10 days This case has been discussed with my supervising physician Dr. Porras. The case has been discussed and agreed upon. IGOR FORMAN [facility] May 08, 2025 12:52
== END 2025-05-08 15:25 | disposition home or self-care (01) | DRG 872 ==
LOC: EDH 17:13 → EDHIP 20:53 → 3BH 05-04 21:43
PROVIDERS: ADMIT Internal Medicine; ATTEND Internal Medicine
DX: A41.9 Sepsis, unspecified organism (principal); Z68.43 Body mass index [BMI] 50.0-59.9, adult; L02.215 Cutaneous abscess of perineum; E11.9 Type 2 diabetes mellitus without complications; I10 Essential (primary) hypertension; N43.3 Hydrocele, unspecified; N49.2 Inflammatory disorders of scrotum; N28.1 Cyst of kidney, acquired; F17.210 Nicotine dependence, cigarettes, uncomplicated; E87.6 Hypokalemia; B95.2 Enterococcus as the cause of diseases classified elsewhere; E66.01 Morbid (severe) obesity due to excess calories; Z51.5 Encounter for palliative care; Z88.1 Allergy status to other antibiotic agents
CPT/HCPCS: 36415; 74178; 76870; 80048; 80053; 81001; 82948; 83036; 83605; 83735; 84100; 84145; 85025; 87040; 87070; 87076; 87086; 87186; 99285; G0378; J1200; J1650; J1815; J1885; J1956; J2270; J2405; J2543; J3373; J3475; J7030; Q0163; Q9967; J3370